=== PATIENT | female | born 1950 | race Caucasian/White ===

== ENCOUNTER 2019-09-13 10:30 | Outpatient (CLI) | payer MEDICARE, SELFPAY ==
[2019-09-13 11:19] LABS: Albumin Level 4.3 g/dL (3.5-5.2); Anion Gap 15.3 (5-19); Blood Urea Nitrogen 16 mg/dL (8-23); Calcium 9.9 mg/dL (8.5-10.5); Carbon Dioxide 28 mmol/L (22-29); Chloride 99 mmol/L (98-107); Glucose 104 mg/dL (74-106); Phosphorus 2.3 mg/dL (2.5-4.5); Potassium 5.3 mmol/L (3.5-5.1); Sodium 137 mmol/L (136-145)
[2019-09-13 11:23] LABS: Bilirubin Urine Neg (NEGATIVE); Blood Urine Neg (Negative); Glucose Urine UA Norm (Normal); Ketones Urine Negative (Negative); Leukocyte Esterase Urine Negative (Negative); Nitrate Urine Negative (Negative); Protein Urine Neg (Negative); Specific Gravity, Urine 1.005 (1.005-1.030); Urine Appearance Clear (CLEAR); Urine Color Straw (Yellow); Urobilinogen Urine Norm (Negative)
[2019-09-13 11:43] LABS: Add Urine Culture? No; Bacteria Urine TRACE; RBC Urine RARE /hpf (0-2); Squamous Epithelial Cell Urine 0-4 (0-5)
[2019-09-13 11:44] LABS: Creatinine Urine, Random 55 mg/dL (28-217)
[2019-09-13 11:53] LABS: Microalbum Creatinine Ratio Ur 18 mg/dL (0-20); Microalbumin Random Urine 1 ug/dL (0-20)
== END 2019-09-13 10:31 | disposition home or self-care (01) ==
LOC: LAB 10:41
PROVIDERS: Family Provider Registered Nurse; PCP Registered Nurse; Visit Provider Internal Medicine Nephrology
DX: N18.3 Chronic kidney disease, stage 3 (moderate) (principal)
CPT/HCPCS: 36415; 80069; 81001; 82044

== ENCOUNTER 2019-09-18 09:21 | Outpatient (CLI) | payer MEDICARE, SELFPAY ==
--- NOTE | 2019-09-18 09:36 | US_ITS ---
WS: [id number] ULTRASOUND RENAL TECHNIQUE: Ultrasound examination of both kidneys. CLINICAL INFORMATION: CHRONIC KIDNEY DZ STAGE 3 COMPARISON: None. FINDINGS: RIGHT: Right kidney is normal in size and appearance. Echogenicity: Normal. Cortical thickness: 1.2 cm; Normal. Hydronephrosis: None. Perinephric fluid: None. Right kidney measures: 10.0 cm x 4.5 cm x 4.0 cm. LEFT: Left upper pole renal cyst measuring 3.9 x 4.2 x 4.6 cm Left kidney is normal in size and appearance. Echogenicity: Normal. Cortical thickness: 1.2 cm; Normal. Hydronephrosis: None. Perinephric fluid: None. Left kidney measures: 10.0 cm x 3.9 cm x 5.4 cm. Normal visualized aorta. US/US renal BI* [id number] IMPRESSION: 1. No hydronephrosis in either kidney. 2. Left upper pole renal cyst measuring 3.9 x 4.2 x 4.6 cm. 3. Bladder is decompressed.
== END 2019-09-18 09:22 | disposition home or self-care (01) ==
LOC: RAD 09:30
PROVIDERS: Family Provider Registered Nurse; PCP Registered Nurse; Visit Provider Internal Medicine Nephrology
DX: N18.3 Chronic kidney disease, stage 3 (moderate) (principal); N28.1 Cyst of kidney, acquired
CPT/HCPCS: 76770

== ENCOUNTER 2020-03-04 10:52 | Outpatient (CLI) | payer MEDICARE, MEDICAID, SELFPAY ==
[2020-03-04 11:27] LABS: Basophils % 0.2 %; Eosinophils # 0.1 10^3/uL (0.0-0.8); Eosinophils % 1.5 %; Hematocrit 39.7 % (37.0-47.0); Hemoglobin 12.8 g/dL (11.5-15.3); Lymphocytes # 0.9 10^3/uL (0.8-4.8); Lymphocytes % 14.2 %; Mean Corpuscular HGB Conc 32.2 g/dL (30.0-36.0); Mean Corpuscular Hemoglobin 28.9 pg (28.0-34.0); Mean Corpuscular Volume 89.6 fL (81-99); Mean Platelet Volume 11.3 fL (7.4-10.4); Monocytes # 0.4 10^3/uL (0.2-0.9); Monocytes % 5.6 %; Neutrophils # 5.16 10^3/uL (1.8-7.7); Nucleated Red Blood Cells % 0 %; Platelet Count 153 10^3/cmm (130-400); Red Blood Count 4.43 10^6/uL (4.1-5.3); White Blood Count 6.6 10^3/uL (4.0-10.0)
[2020-03-04 11:54] LABS: Creatinine Urine, Random 124 mg/dL (28-217); Microalbum Creatinine Ratio Ur 16 mg/dL (0-20); Microalbumin Random Urine 2 ug/dL (0-20)
[2020-03-04 12:11] LABS: 25 Hydroxy Vitamin D 23 ng/mL (30-100); Albumin Level 4.6 g/dL (3.5-5.2); Anion Gap 12.9 (5-19); Blood Urea Nitrogen 22 mg/dL (8-23); Calcium 9.3 mg/dL (8.5-10.5); Carbon Dioxide 29 mmol/L (22-29); Chloride 101 mmol/L (98-107); Glomerular Filtration Rate 37.5 mL/min (90-130); Glucose 164 mg/dL (65-115); Phosphorus 3.1 mg/dL (2.5-4.5); Potassium 4.9 mmol/L (3.5-5.1); Sodium 138 mmol/L (136-145)
[2020-03-04 13:09] LABS: Calcium 9.5 mg/dL (8.5-10.5); Parathyroid Hormone 30.2 pg/mL (15-65)
== END 2020-03-04 10:53 | disposition home or self-care (01) ==
LOC: LAB 10:58
PROVIDERS: PCP Registered Nurse; Visit Provider Internal Medicine Nephrology
DX: N18.3 Chronic kidney disease, stage 3 (moderate) (principal)
CPT/HCPCS: 36415; 80069; 82044; 82306; 82310; 83970; 85025

== ENCOUNTER 2020-04-05 08:40 | Outpatient (CLI) | payer MEDICARE, MEDICAID, SELFPAY ==
[2020-04-05 09:44] LABS: Anion Gap 12.4 (5-19); Blood Urea Nitrogen 22 mg/dL (8-23); Calcium 8.6 mg/dL (8.5-10.5); Carbon Dioxide 30 mmol/L (22-29); Chloride 99 mmol/L (98-107); Glomerular Filtration Rate 34.5 mL/min (90-130); Glucose 117 mg/dL (65-115); Osmolality Calculated 280 mOsm/kg (285-295); Potassium 5.4 mmol/L (3.5-5.1); Sodium 136 mmol/L (136-145)
== END 2020-04-05 08:41 | disposition home or self-care (01) ==
LOC: LAB 08:46
PROVIDERS: PCP Registered Nurse; Visit Provider Registered Nurse
DX: N18.3 Chronic kidney disease, stage 3 (moderate) (principal)
CPT/HCPCS: 36415; 80048

== ENCOUNTER 2020-07-18 10:53 | Outpatient (CLI) | payer MEDICARE, MEDICAID, SELFPAY ==
--- NOTE | 2020-07-18 11:00 | MM_ITS ---
WS: [id number] Bilateral screening digital mammogram, 07/18/2020 Clinical Data: SCREENING Comparison: 06/05/2019, 03/10/2018, 12/29/2016, 12/25/2014. Findings: The breast parenchymal pattern shows fat replacement. No spiculated masses or clustered calcification s are seen. There are no secondary signs of carcinoma. MM/[place] [id number] Impression: 1. Negative bilateral mammogram unchanged. 2. Recommend annual screening mammograms. BIRADS: 1-Negative FOLLOW UP: 1 Year Follow-up The CAD card checker was used.
== END 2020-07-18 10:54 | disposition home or self-care (01) ==
LOC: RADSHAW 10:57
PROVIDERS: PCP Registered Nurse; Visit Provider Registered Nurse
DX: Z12.31 Encounter for screening mammogram for malignant neoplasm of breast (principal)
CPT/HCPCS: 77067

== ENCOUNTER 2020-09-04 08:28 | Outpatient (CLI) | payer MEDICARE, MEDICAID, SELFPAY ==
[2020-09-04 09:15] LABS: Basophils % 0.3 %; Eosinophils # 0.1 10^3/uL (0.0-0.8); Eosinophils % 1.9 %; Hematocrit 41.7 % (37.0-47.0); Hemoglobin 13.7 g/dL (11.5-15.3); Lymphocytes # 1.2 10^3/uL (0.8-4.8); Lymphocytes % 16.7 %; Mean Corpuscular HGB Conc 32.9 g/dL (30.0-36.0); Mean Corpuscular Hemoglobin 28.7 pg (28.0-34.0); Mean Corpuscular Volume 87.4 fL (81-99); Mean Platelet Volume 11.1 fL (7.4-10.4); Monocytes # 0.5 10^3/uL (0.2-0.9); Monocytes % 6.8 %; Neutrophils # 5.46 10^3/uL (1.8-7.7); Nucleated Red Blood Cells % 0 %; Platelet Count 170 10^3/cmm (130-400); Red Blood Count 4.77 10^6/uL (4.1-5.3); White Blood Count 7.4 10^3/uL (4.0-10.0)
[2020-09-04 09:44] LABS: Albumin Level 4.6 g/dL (3.5-5.2); Anion Gap 13.5 (5-19); Blood Urea Nitrogen 26 mg/dL (8-23); Calcium 9.8 mg/dL (8.5-10.5); Carbon Dioxide 30 mmol/L (22-29); Chloride 95 mmol/L (98-107); Glomerular Filtration Rate 32.1 mL/min (90-130); Glucose 123 mg/dL (65-115); Phosphorus 3.2 mg/dL (2.5-4.5); Potassium 4.5 mmol/L (3.5-5.1); Sodium 134 mmol/L (136-145)
[2020-09-04 09:51] LABS: Creatinine Urine, Random 64 mg/dL (28-217); Microalbum Creatinine Ratio Ur 16 mg/dL (0-20); Microalbumin Random Urine 1 ug/dL (0-20)
[2020-09-04 10:00] LABS: Calcium 9.9 mg/dL (8.5-10.5); Parathyroid Hormone 43.8 pg/mL (15-65)
== END 2020-09-04 08:29 | disposition home or self-care (01) ==
PROVIDERS: PCP Registered Nurse; Visit Provider Registered Nurse
DX: N18.30 Chronic kidney disease, stage 3 unspecified (principal)
CPT/HCPCS: 36415; 80069; 82044; 82310; 83970; 85025

== ENCOUNTER 2020-10-17 10:20 | Outpatient (CLI) | payer MEDICARE, MEDICAID, SELFPAY ==
[2020-10-17 11:03] LABS: Estmated Average Glucose 120; Hemoglobin A1C 5.8 % (4.0-6.0)
[2020-10-17 11:27] LABS: Anion Gap 10.6 (5-19); Blood Urea Nitrogen 21 mg/dL (8-23); Calcium 9.5 mg/dL (8.5-10.5); Carbon Dioxide 32 mmol/L (22-29); Chloride 98 mmol/L (98-107); Glomerular Filtration Rate 40.7 mL/min (90-130); Glucose 114 mg/dL (65-115); Osmolality Calculated 286 mOsm/kg (285-295); Potassium 4.6 mmol/L (3.5-5.1); Sodium 136 mmol/L (136-145)
== END 2020-10-17 10:21 | disposition home or self-care (01) ==
PROVIDERS: PCP Registered Nurse; Visit Provider Registered Nurse
DX: I10 Essential (primary) hypertension (principal); N18.32 Chronic kidney disease, stage 3b; E11.22 Type 2 diabetes mellitus with diabetic chronic kidney disease
CPT/HCPCS: 36415; 80048; 83036

== ENCOUNTER 2020-10-21 12:26 | Outpatient (RCR) | payer MEDICARE, MEDICAID, SELFPAY | END 2020-11-13 23:59 | disposition home or self-care (01) | LOC: SPT 12:26 | PROVIDERS: PCP Registered Nurse; Referring Provider Registered Nurse; Visit Provider Registered Nurse | DX: Z74.09 Other reduced mobility (principal); E11.51 Type 2 diabetes mellitus with diabetic peripheral angiopathy without gangrene | CPT/HCPCS: 97110; 97112; 97161; 97530 ==

== ENCOUNTER 2020-10-22 07:43 | Outpatient (CLI) | payer MEDICARE, MEDICAID, SELFPAY ==
--- NOTE | 2020-10-22 07:57 | USCV_ITS ---
Marian Hartman Age: 70 Gender: F : 1950 Exam Date: 10/22/2020 08:18 Ordering Phys: Kayla Mantilla CLOTH WINDING SUPERVISOR CLOTH WINDING SUPERVISOR Technologist: Madonna Melvin [place] [facility] [place]: DECREASED MOBILITY Risk Factors: Previous Vascular Surgery: RIGHT LEFT BP: 180.0 / BP: / 0 Waveform Velocity (cm/s) Velocity (cm/s) Waveform Triphasic 237.2 Iliac Prox 278.3 Biphasic Triphasic 259.4 Iliac Mid 312.5 Biphasic Triphasic 251.3 Iliac Distal 219.7 Biphasic Biphasic 168.9 FRUIT PRESS OPERATOR 205.1 Biphasic Biphasic 209.1 SFA Prox 194.3 Biphasic Biphasic 126.7 SFA Mid 176.3 Biphasic Biphasic SFA Dist Biphasic 119.6 138.5 Biphasic 156.9 POP 86.3 Biphasic Triphasic 82.3 3RD PRESSMAN 115.1 Biphasic Triphasic 104.0 DPA 291.5 Biphasic 1.1 MELANIE 1.1 FINDINGS PRESSURE NOT TAKEN LT BRACH -WOUND IN AREA RT DPA 190 RT 3RD PRESSMAN 70 LT 3RD PRESSMAN 190 DPA 138 Normal resting ABIs bilaterally, 1.1 on both sides Moderate diffuse plaques in the iliac and femoral arteries bilaterally Possible stent in the mid SFA appears to be patent on the right side CONCLUSIONS Moderate to heavy plaques in the iliac and femoral arteries bilaterally with elevated velocities may suggest hemodynamically significant stenosis Elevated velocity in the left dorsalis pedis artery, suggestive of hemodynamically significant stenosis Possible stented segment in the right mid SFA patient be patent Normal resting ABIs bilaterally Consider CTA, to better evaluate the peripheral arteries, if clinically indicated No similar previous studies are available for comparison. Dr Susan Jimenez MD [facility] (Electronically Signed) Final Date: 23 October 2020 08:17 S
== END 2020-10-22 07:44 | disposition home or self-care (01) ==
LOC: RAD 07:47
PROVIDERS: PCP Registered Nurse; Visit Provider Registered Nurse
DX: Z74.09 Other reduced mobility (principal); I70.8 Atherosclerosis of other arteries
CPT/HCPCS: 93925

== ENCOUNTER 2021-03-19 09:32 | Outpatient (CLI) | payer MEDICARE, MEDICAID, SELFPAY ==
[2021-03-19 10:47] LABS: Basophils % 0.4 %; Eosinophils # 0.2 10^3/uL (0.0-0.8); Eosinophils % 1.9 %; Hematocrit 45.3 % (37.0-47.0); Hemoglobin 14.8 g/dL (11.5-15.3); Lymphocytes # 1.1 10^3/uL (0.8-4.8); Lymphocytes % 12.9 %; Mean Corpuscular HGB Conc 32.7 g/dL (30.0-36.0); Mean Corpuscular Hemoglobin 28.2 pg (28.0-34.0); Mean Corpuscular Volume 86.5 fL (81-99); Mean Platelet Volume 11.4 fL (7.4-10.4); Monocytes # 0.4 10^3/uL (0.2-0.9); Monocytes % 5.2 %; Neutrophils # 6.71 10^3/uL (1.8-7.7); Neutrophils % 79.4 %; Nucleated Red Blood Cells % 0 %; Platelet Count 203 10^3/cmm (130-400); Red Blood Count 5.24 10^6/uL (4.1-5.3); Red Cell Distribution Width 12.5 % (12.1-15.1); White Blood Count 8.5 10^3/uL (4.0-10.0)
[2021-03-19 11:05] LABS: Calcium 9.2 mg/dL (8.5-10.5)
[2021-03-19 11:06] LABS: Albumin Level 4.5 g/dL (3.5-5.2); Anion Gap 15.3 (5-19); Blood Urea Nitrogen 15 mg/dL (8-23); Calcium 9.4 mg/dL (8.5-10.5); Carbon Dioxide 28 mmol/L (22-29); Chloride 100 mmol/L (98-107); Glomerular Filtration Rate 40.7 mL/min (90-130); Glucose 118 mg/dL (65-115); Phosphorus 2.8 mg/dL (2.5-4.5); Potassium 4.3 mmol/L (3.5-5.1); Sodium 139 mmol/L (136-145)
[2021-03-19 11:12] LABS: Parathyroid Hormone 67.2 pg/mL (15-65)
[2021-03-19 11:22] LABS: 25 Hydroxy Vitamin D 23 ng/mL (30-100); Creatinine Urine, Random 52 mg/dL (28-217); Microalbumin Random Urine 4 ug/dL (0-20)
[2021-03-19 11:36] LABS: Microalbum Creatinine Ratio Ur 77 mg/dL (0-20)
== END 2021-03-19 09:33 | disposition home or self-care (01) ==
PROVIDERS: PCP Registered Nurse; Visit Provider Internal Medicine Nephrology
DX: E87.79 Other fluid overload (principal)
CPT/HCPCS: 80069; 82044; 82306; 82310; 83970; 85025

== ENCOUNTER 2021-07-21 10:52 | Outpatient (CLI) | payer MEDICARE, MEDICAID, SELFPAY ==
--- NOTE | 2021-07-21 11:00 | MM_ITS ---
WS: [id number] Exam: [place] [id number] Date/Time of Exam: 07/21/2021 11:02 AM Reason For Exam: SCREENING VIEWS: MLO and CC views both breasts. Comparison made with prior exam of 06/05/2019 and 07/18/2020. Findings: There are 2 small nodular densities both about 1 cm identified in the mid right breast on the MLO vie w only. One lesion is almost directly posterior to the nipple at mid depth and the second lesion is p osterior in depth and somewhat more superior. No architectural distortion or suspicious calcification . There are additional stable appearing fibroglandular densities in both breasts. No new finding in t he left breast. Both breasts contain scattered fibroglandular densities. MM/[place] [id number] Impression: BI-RADS: 0-Incomplete: Need additional imaging evaluation FOLLOW-UP: Need Additional Imaging. Compression spot imaging of the right breas t in the MLO projection would be indicated for further workup. This mammogram was also analyzed by the Computer Aided Detection System R2 Imag e [employer]ag[employer] Mechanic.
== END 2021-07-21 10:53 | disposition home or self-care (01) ==
LOC: RADSHAW 10:54
PROVIDERS: PCP Registered Nurse; Visit Provider Registered Nurse
DX: Z12.31 Encounter for screening mammogram for malignant neoplasm of breast (principal)
CPT/HCPCS: 77067

== ENCOUNTER 2021-08-19 13:54 | Outpatient (CLI) | payer MEDICARE, MEDICAID, SELFPAY ==
--- NOTE | 2021-08-19 14:03 | MM_ITS ---
WS: [id number] ADDITIONAL VIEWS RIGHT BREAST HISTORY: RT BREAST DENSITIES COMPARISON: 07/21/2021 and 07/18/2020 and 06/05/2019 Compression views right MLO projection. True ML, MLO also submitted. The very vague asymmetries noted in the mid to posterior RIGHT breast on the MLO projection do to not persist on today's study. MM/[place] [id number] IMPRESSION: BI-RADS: 2-Benign FOLLOW-UP: 1 Year Follow-up Return to annual screening. Previously described asymmetries do not persist on additional views.
== END 2021-08-19 13:55 | disposition home or self-care (01) ==
PROVIDERS: PCP Registered Nurse; Visit Provider Registered Nurse
DX: R92.8 Other abnormal and inconclusive findings on diagnostic imaging of breast (principal)
CPT/HCPCS: 77065

== ENCOUNTER 2022-03-19 09:16 | Outpatient (CLI) | payer MEDICARE, MEDICAID, SELFPAY ==
[2022-03-19 10:08] LABS: Basophils % 0.2 %; Eosinophils # 0.1 10^3/uL (0.0-0.8); Eosinophils % 1.4 %; Hematocrit 43.1 % (37.0-47.0); Hemoglobin 14.2 g/dL (11.5-15.3); Lymphocytes # 1.1 10^3/uL (0.8-4.8); Lymphocytes % 11.1 %; Mean Corpuscular HGB Conc 32.9 g/dL (30.0-36.0); Mean Corpuscular Hemoglobin 28.2 pg (28.0-34.0); Mean Corpuscular Volume 85.5 fl (81-99); Mean Platelet Volume 10.4 fL (7.4-10.4); Monocytes # 0.5 10^3/uL (0.2-0.9); Monocytes % 5.7 %; Neutrophils # 7.78 10^3/uL (1.8-7.7); Neutrophils % 81.4 %; Nucleated Red Blood Cells % 0 %; Platelet Count 232 10^3/cmm (130-400); Red Blood Count 5.04 10^6/uL (4.1-5.3); Red Cell Distribution Width 11.9 % (12.1-15.1); White Blood Count 9.6 10^3/uL (4.0-10.0)
[2022-03-19 10:28] LABS: Calcium 8.8 mg/dL (8.5-10.5)
[2022-03-19 10:31] LABS: Creatinine Urine, Random 4 mg/dL (28-217); Microalbum Creatinine Ratio Ur 250 mg/dL (0-20); Microalbumin Random Urine 1 ug/dL (0-20)
[2022-03-19 10:36] LABS: Parathyroid Hormone 83.3 pg/mL (15-65)
[2022-03-19 10:48] LABS: Albumin Level 3.9 g/dL (3.5-5.2); Blood Urea Nitrogen 19 mg/dL (8-23); Calcium 8.8 mg/dL (8.5-10.5); Carbon Dioxide 30 mmol/L (22-29); Chloride 97 mmol/L (98-107); Glomerular Filtration Rate 40.6 mL/min (90-130); Glucose 117 mg/dL (65-115); Phosphorus 2.6 mg/dL (2.5-4.5); Sodium 137 mmol/L (136-145)
[2022-03-19 11:04] LABS: 25 Hydroxy Vitamin D 49 ng/mL (30-100)
== END 2022-03-19 09:17 | disposition home or self-care (01) ==
PROVIDERS: PCP Nurse Practitioner Family; Visit Provider Internal Medicine Nephrology
DX: N18.32 Chronic kidney disease, stage 3b (principal)
CPT/HCPCS: 36415; 80069; 82044; 82306; 82310; 83970; 85025

== ENCOUNTER 2022-04-23 09:27 | Outpatient (CLI) | payer MEDICARE, MEDICAID, SELFPAY ==
[2022-04-23 10:24] LABS: Blood Urea Nitrogen 26 mg/dL (8-23); Calcium 9.5 mg/dL (8.5-10.5); Carbon Dioxide 28 mmol/L (22-29); Chloride 94 mmol/L (98-107); Glomerular Filtration Rate 40.5 mL/min (90-130); Glucose 91 mg/dL (65-115); Osmolality Calculated 276 mOsm/kg (285-295); Sodium 131 mmol/L (136-145)
[2022-04-23 10:35] LABS: Anion Gap 13.7 (5-19); Potassium 4.7 mmol/L (3.5-5.1)
== END 2022-04-23 09:28 | disposition home or self-care (01) ==
PROVIDERS: PCP Nurse Practitioner Family; Visit Provider Internal Medicine Nephrology
DX: N18.32 Chronic kidney disease, stage 3b (principal)
CPT/HCPCS: 36415; 80048

== ENCOUNTER 2022-12-07 13:28 | Outpatient (CLI) | payer MEDICARE, MEDICAID, SELFPAY ==
--- NOTE | 2022-12-07 13:56 | MM_ITS ---
WS: [id number] BILATERAL 3D TOMOSYNTHESIS DIGITAL SCREENING MAMMOGRAPHY WITH CAD CLINICAL INFORMATION: SCREENING HISTORY: Screening mammogram. No current complaints. COMPARISON: July 21, 2021 TECHNIQUE: Bilateral CC and MLO views. FINDINGS: Scattered fibroglandular densities bilaterally. No suspicious focal mass, asymmetry, calcifications, or architectural distortion. No evidence of malignancy. Incidental lucent centered calcification LEFT breast. MM/[place] [id number] IMPRESSION: BI-RADS: 2-Benign FOLLOW UP: 1 Year Follow-up Recommend return to annual screening mammography.
== END 2022-12-07 13:29 | disposition home or self-care (01) ==
LOC: RAD 13:46
PROVIDERS: PCP Nurse Practitioner Family; Visit Provider Nurse Practitioner Family
DX: Z12.11 Encounter for screening for malignant neoplasm of colon (principal)
CPT/HCPCS: 77063; 77067

== ENCOUNTER → 2023-01-26 13:33 | Outpatient (BNVA) | payer MEDICARE, MEDICAID, SELFPAY | PROVIDERS: PCP Nurse Practitioner Family; Visit Provider Internal Medicine | DX: R07.9 Chest pain, unspecified (principal); F03.90 Unspecified dementia, unspecified severity, without behavioral disturbance, psychotic disturbance, mood disturbance, and anxiety; E11.22 Type 2 diabetes mellitus with diabetic chronic kidney disease; I12.9 Hypertensive chronic kidney disease with stage 1 through stage 4 chronic kidney disease, or unspecified chronic kidney disease; N18.9 Chronic kidney disease, unspecified; R06.09 Other forms of dyspnea | CPT/HCPCS: 93005; 93225; 99214 ==

== ENCOUNTER 2023-01-28 12:30 | Outpatient (CLI) | payer MEDICARE, MEDICAID, SELFPAY ==
--- NOTE | 2023-01-28 12:58 | CT_ITS ---
WS: [id number] CT ABDOMEN AND PELVIS NONCONTRAST HISTORY: HX OF COLITIS/BLACK TARRY STOOLS TECHNIQUE: Imaging performed through the abdomen and pelvis. Coronal and sagittal reformats are submi tted. All CT scans at [facility] use at least one of these dose optimization techniques: auto mated exposure control; mA and/or kV adjustment per patient size (includes targeted exams where dose is matched to clinical indication); or iterative reconstruction. DLP: 280.47 mGy.cm COMPARISON: None available. Lower thorax: Lung bases are clear. Visualized heart is normal. Small hiatal hernia. Liver: Normal size liver. No mass or bile duct dilatation. Gallbladder: Normal gallbladder. No pericholecystic fluid or cholelithiasis. No gallbladder wall thic kening. Pancreas: Normal size and attenuation. Normal pancreatic duct. No pancreatitis or mass. Spleen: Normal. Adrenal glands: Normal. No mass. Right kidney: Normal size kidney with no mass or hydronephrosis. Left kidney: No renal obstruction. Simple cyst superior pole measures 4.7 x 4.8 cm. No obstruction. Aorta: Mild atherosclerosis abdominal aorta with no aneurysm. No free fluid, intraperitoneal air or significant lymphadenopathy. GI tract: Normal noncontrast evaluation of the stomach and small bowel. Tortuous overlapping loops of colon. Numerous diverticula in the descending and sigmoid colon. No acute diverticulitis. Appendix n ot identified. Abdominal wall: Negative. No hernia. Pelvis: Probable hysterectomy. Uterus is not identified. Osseous structures: Increase in lumbar lordosis. CT/CT abdomen pelvis wo con [id number] IMPRESSION: 1. No acute abdominal or pelvic abnormalities are identified. 2. No wall thickening of the colon to suggest acute colitis. 3. Distal colon diverticulosis without acute diverticulitis. 4. LEFT renal cyst.
[2023-01-28 13:23] LABS: Blood Urea Nitrogen 30 mg/dL (8-23); Glomerular Filtration Rate 26.1 mL/min (90-130)
== END 2023-01-28 12:31 | disposition home or self-care (01) ==
PROVIDERS: PCP Nurse Practitioner Family; Visit Provider Nurse Practitioner Family
DX: R19.5 Other fecal abnormalities (principal); K92.1 Melena; N28.1 Cyst of kidney, acquired; K57.90 Diverticulosis of intestine, part unspecified, without perforation or abscess without bleeding; Z87.19 Personal history of other diseases of the digestive system
CPT/HCPCS: 74176; 82565; 84520

== ENCOUNTER 2023-02-12 13:40 | Outpatient (CLI) | payer MEDICARE, MEDICAID, SELFPAY ==
--- NOTE | 2023-02-12 14:00 | USCV_ITS ---
Marian Hartman Age: 72 Gender: F : 1950 Exam Date: 02/12/2023 14:49 Ordering Phys: Franklin Harry M.D ([email or web address]) Technologist: [place] [facility] [place]: sob BP: 120 / 80 HR: 76 Rhythm: Sinus Technical Quality: Adequate MEASUREMENTS (Male / Female) Normal Values 2D ECHO LVOT Diameter 2.0 cm LV Ejection Fraction MOD 2C 45.7 % LV Ejection Fraction 2C AL 44.7 % LA Diameter 3.2 cm Aorta at Sinotubular Diameter 2.7 cm IVC Diameter 1.5 cm M-MODE Aortic Annulus Diameter 3.0 cm LA Ao Ratio MM 1.1 MV E Point Septal Separation 0.6 cm DOPPLER AV Peak Velocity 177.0 cm/s LVOT Peak Velocity 120.0 cm/s AV Area Cont Eq vti 2.2 cm squared AV Area Cont Eq pk 2.2 cm squared MV Peak Velocity 99.0 cm/s MV Area PHT 2.6 cm squared Mitral E to A Ratio 0.8 MV E' Velocity 43.0 cm/s Mitral E to MV E' Ratio 6.9 Mitral E to LV E' Lateral Ratio 6.2 Mitral E to LV E' Septal Ratio 7.8 TR Peak Velocity 94.0 cm/s TR Peak Gradient 3.5 mmHg TV Peak E Velocity 85.0 cm/s Right Atrial Pressure 3.0 mmHg Pulmonary Artery Systolic Pressu 6.5 mmHg PV Peak Velocity 114.0 cm/s FINDINGS Left Ventricle Left ventricle is normal in size. LV systolic function is normal with EF 60-65%. No regional wall motion abnormalities are seen. Grade 1 diastolic dysfunction Right Ventricle Normal in size and function Right Atrium Normal in size Left Atrium Normal in size Mitral Valve Structurally normal mitral valve. Mild mitral regurgitation. Aortic Valve Aortic valve is thickened. Mild aortic regurgitation. Tricuspid Valve Trace tricuspid regurgitation. Insufficient TR jet to calculate RVSP Pulmonic Valve Not well visualized Pericardium Normal Aorta Normal in size IVC Appears to be normal CONCLUSIONS LV systolic function is normal with EF of 60-65% Grade 1 diastolic dysfunction Mild mitral regurgitation Mild aortic regurgitation Trace tricuspid regurgitation No comparison studies are available. Franklin Harry MD (Electronically Signed) Final Date: 16 February 2023 14:04 S
== END 2023-02-12 13:41 | disposition home or self-care (01) ==
LOC: RAD 13:42
PROVIDERS: PCP Nurse Practitioner Family; Visit Provider Internal Medicine
DX: I50.30 Unspecified diastolic (congestive) heart failure (principal); I34.0 Nonrheumatic mitral (valve) insufficiency; I07.1 Rheumatic tricuspid insufficiency
CPT/HCPCS: 93306

== ENCOUNTER → 2023-02-24 13:36 | Outpatient (BNVA) | payer MEDICARE, MEDICAID, SELFPAY | PROVIDERS: PCP Nurse Practitioner Family; Visit Provider Nurse Practitioner Family | DX: C44.612 Basal cell carcinoma of skin of right upper limb, including shoulder (principal); C44.712 Basal cell carcinoma of skin of right lower limb, including hip; L57.8 Other skin changes due to chronic exposure to nonionizing radiation; L57.0 Actinic keratosis; L81.4 Other melanin hyperpigmentation; D22.5 Melanocytic nevi of trunk; L85.3 Xerosis cutis; Z85.828 Personal history of other malignant neoplasm of skin | CPT/HCPCS: 11102; 11103; 17004; 99213 ==

== ENCOUNTER → 2023-03-22 08:20 | Outpatient (BNVA) | payer MEDICARE, MEDICAID, SELFPAY | PROVIDERS: PCP Nurse Practitioner Family; Visit Provider Dermatology | DX: L57.0 Actinic keratosis (principal); D04.61 Carcinoma in situ of skin of right upper limb, including shoulder; D04.71 Carcinoma in situ of skin of right lower limb, including hip; C44.612 Basal cell carcinoma of skin of right upper limb, including shoulder | CPT/HCPCS: 17314; 12034; 17313; 99213 ==

== ENCOUNTER → 2023-04-06 10:38 | Outpatient (BNVA) | payer MEDICARE, MEDICAID, SELFPAY | PROVIDERS: PCP Nurse Practitioner Family; Visit Provider Dermatology | DX: Z48.02 Encounter for removal of sutures (principal) | CPT/HCPCS: 99212 ==

== ENCOUNTER → 2023-04-20 12:43 | Outpatient (BNVA) | payer MEDICARE, MEDICAID, SELFPAY | PROVIDERS: PCP Nurse Practitioner Family; Visit Provider Internal Medicine | DX: I13.10 Hypertensive heart and chronic kidney disease without heart failure, with stage 1 through stage 4 chronic kidney disease, or unspecified chronic kidney disease (principal); E11.22 Type 2 diabetes mellitus with diabetic chronic kidney disease; N18.9 Chronic kidney disease, unspecified; Z96.41 Presence of insulin pump (external) (internal); R06.09 Other forms of dyspnea | CPT/HCPCS: 99214 ==

== ENCOUNTER 2023-05-04 20:00 | Outpatient (CLI) | payer MEDICARE, MEDICAID, SELFPAY | END 2023-05-04 20:01 | disposition home or self-care (01) | LOC: SLEEP 05-05 04:40 | PROVIDERS: PCP Nurse Practitioner Family; Visit Provider Internal Medicine | DX: G47.33 Obstructive sleep apnea (adult) (pediatric) (principal) | CPT/HCPCS: 95810 ==

== ENCOUNTER 2023-06-01 19:03 | Emergency (ER) | payer MEDICARE, MEDICAID, SELFPAY ==
[2023-06-01 19:12] VITALS: BP 168/85; PULSE 70; RESP 17; O2SAT 94; BMI 29.4
--- NOTE | 2023-06-01 19:16 | XRR_ITS ---
PROCEDURE INFORMATION: Exam: XR Lumbosacral Spine Exam date and time: 06/01/2023 7:36 PM Age: 73 years old Clinical indication: Injury or trauma; Fall; Blunt trauma (contusions or hematomas) TECHNIQUE: Imaging protocol: Radiologic exam of the lumbosacral spine. Views: 2 or 3 views. COMPARISON: CT abdomen pelvis wo con [id number] 01/28/2023 2:19 PM FINDINGS: Bones/joints: 10 degrees leftward lumbar curvature. The vertebral body stature is maintained. No fracture or subluxation. Degenerative endplate changes in the lower thoracic spine and at L1-L2. Soft tissues: Unremarkable. Vasculature: Arterial calcifications. XR/XR lumbar spine 2-3V* [id number] IMPRESSION: No acute findings.
--- NOTE | 2023-06-01 19:16 | XRR_ITS ---
PROCEDURE INFORMATION: Exam: XR Left Shoulder Exam date and time: 06/01/2023 7:40 PM Age: 73 years old Clinical indication: Injury or trauma; Fall; Blunt trauma (contusions or hematomas); Shoulder; Left TECHNIQUE: Imaging protocol: Radiologic exam of the left shoulder. Views: 2 or more views. COMPARISON: No relevant prior studies available. FINDINGS: Bones/joints: Normal. Soft tissues: Normal. XR/XR shoulder LT min 2V* [id number] IMPRESSION: No acute findings.
--- NOTE | 2023-06-01 22:17 | ED_ITS ---
HPI - Fall General: Chief Complaint: Fall Stated Complaint: fall- back pain and shoulder pain Time Seen by Provider: 06/01/23 21:38 Source: patient Mode of arrival: ambulatory Limitations: no limitations History of Present Illness: 73-year-old female states she had tripped out of her front door and fell onto the ground she states she had landed on her back and side states she has left shoulder pain and low back pain from the fall she rates the pain a 5 out of 10 she denies any hip pain she denies hitting her head denies any head neck pain. She is able to ambulate. Associated symptoms-after fall: Denies abdominal pain, chest pain, headache(s) or neck pain Review of Systems Const: Denies: fever(s) or chills Eyes: Denies: eye discomfort ENMT: Denies: throat pain or dental pain Card: Denies: chest pain Resp: Denies: dyspnea GI: Denies: abdominal pain, nausea, vomiting or diarrhea Musc: Reports: back pain and extremity pain; Denies: neck pain Skin/Breast: Denies: rash Neuro: Denies: headache(s) PFSH ED PFSH: Medical History Asthma CKD (chronic kidney disease) Diabetes mellitus History of nonmelanoma skin cancer HTN (hypertension) Hypercholesterolemia Peripheral arterial disease with history of revascularization Family History Mother Myocardial infarction Father Myocardial infarction Stroke Social History Smoking and tobacco/nicotine status: never used tobacco/nicotine Physical Exam Const: COMMON NORMALS: no acute distress, patient oriented x3 and healthy appearing HENMT: COMMON NORMALS: normocephalic and atraumatic HEAD & SCALP: normocephalic and atraumatic Eye: COMMON NORMALS: Equal, round and reactive pupils present and EOMs intact bilaterally PUPIL: Yes Equal, round and reactive pupils present Neck/C-Spine: COMMON NORMALS: full ROM and supple CERVICAL SPINE: No pain with cervical ROM and No Cervical spine tenderness Chest: COMMONS NORMALS: normal inspection of the chest and normal palpation of entire chest wall Resp: COMMON NORMALS: normal respiratory effort, No retractions, No use of accessory muscles and clear to auscultation bilaterally AUSCULTATION: clear to auscultation bilaterally Cardio: COMMON NORMALS: regular rate, regular rhythm and No murmurs present (Cardio) RATE: regular rate RHYTHM: regular rhythm GI: COMMON NORMALS: Normal to inspection, nondistended, normoactive bowel sounds present, Soft to palpation, non-tender and no masses PALPATION: Yes Soft to palpation Back/Pelvis: OTHER: Lower lumbar tenderness no midline tenderness Extremity: COMMON NORMALS: full ROM NARRATIVE EXTREMITY EXAM: Plan tenderness over left shoulder has full range of motion no obvious deformities Neuro: COMMON NORMALS: patient oriented x3, moves all extremities and no focal motor deficits Psych: COMMON NORMALS: mental status grossly normal, Normal thought process present and cooperative THOUGHT PROCESS: Normal thought process present Skin: COMMON NORMALS: no rashes or lesions noted and no wounds GENERAL SKIN EXAM: no rashes or lesions noted Course Vital Signs: Vital signs: Vital Signs Pulse Rate 70 06/01/23 19:12 Respiratory Rate 17 06/01/23 19:12 Blood Pressure 168/85 06/01/23 19:12 Pulse Oximetry 94 06/01/23 19:12 Oxygen Delivery Me thod Room Air 06/01/23 19:12 MDM - Fall Medical Decision Making patient presents with shoulder and back contusion from a fall x-ray showed no fracture she has no head or neck injury she is well-appearing here we will prescribe Naprosyn she is stable for discharge she is to follow-up with PCP and return if worsening. Medical Records I reviewed the patient's medical records. Lab Data Radiology Impressions Lumbar Spine X-Ray 06/01/23 19:16 IMPRESSION: No acute findings. Shoulder X-Ray 06/01/23 19:16 IMPRESSION: No acute findings. All radiology interpretation(s) finalized by discharge Discharge Plan Discharge Patient Disposition: Home Clinical Impression: Fall, Contusion of left shoulder, Contusion of lower back Condition: Stable Prescriptions: New Naprosyn 500 mg tablet 500 mg PO BID PRN (Reason: pain) Qty: 20 0RF No Action pravastatin 80 mg tablet 80 mg PO DAILY docusate sodium [Colace] 100 mg capsule 100 mg PO DAILY PRN torsemide 10 mg tablet 10 mg PO DAILY magnesium oxide 400 mg magnesium capsule 400 mg PO BID cholecalciferol (vitamin D3) 10 mcg (400 unit) capsule 10 mcg PO DAILY donepezil [Aricept] 5 mg tablet 5 mg PO DAILY ferrous sulfate 325 mg (65 mg iron) tablet 325 mg PO DAILY Discharge Orders: Discharge ED (Routine); Ordered 06/01/23 Ordered By: Suzy Tyson Referrals: Alber Wright FNP [Primary Care Provider] - 1-3 days Discharge Diet: Advance as tolerated Discharge Activity: Resume usual activity Patient Instructions: Contusion in Adults (ED), Back Pain (ED), Fall Prevention (ED) Coding Level of Care Code ED Engine Head Repairer for Vanna Bolivar
[2023-06-01] MEDS: HYDROcodone-acetaminophen 5-325 mg Tablet 1 TAB PO (22:32)
[2023-06-01 22:35] VITALS: BP 168/85; PULSE 70; RESP 17; O2SAT 94
== END 2023-06-01 22:36 | disposition home or self-care (01) ==
PROVIDERS: Emergency Provider Emergency Medicine; PCP Nurse Practitioner Family
DX: S30.0XXA Contusion of lower back and pelvis, initial encounter (principal); S40.012A Contusion of left shoulder, initial encounter; E11.22 Type 2 diabetes mellitus with diabetic chronic kidney disease; I12.9 Hypertensive chronic kidney disease with stage 1 through stage 4 chronic kidney disease, or unspecified chronic kidney disease; N18.9 Chronic kidney disease, unspecified; W18.09XA Striking against other object with subsequent fall, initial encounter
CPT/HCPCS: 72100; 73030; 99284

== ENCOUNTER 2023-06-21 14:20 | Outpatient (CLI) | payer MEDICARE, MEDICAID, SELFPAY ==
[2023-06-21 16:16] LABS: Basophils % 0.4 %; Eosinophils # 0.2 10^3/uL (0.0-0.8); Hematocrit 42.9 % (36-47); Lymphocytes # 1.2 10^3/uL (0.8-4.8); Lymphocytes % 14.6 %; Mean Corpuscular HGB Conc 32.4 g/dL (30-55); Mean Corpuscular Volume 89.4 fl (85-98); Mean Platelet Volume 11.3 fL (7.4-10.4); Monocytes # 0.6 10^3/uL (0.2-0.9); Monocytes % 7.6 %; Neutrophils # 6.12 10^3/uL (1.8-7.7); Neutrophils % 75.2 %; Nucleated Red Blood Cells % 0 %; Platelet Count 194 10^3/cmm (157-399); Red Cell Distribution Width 11.9 % (12.1-15.1); White Blood Count 8.14 10^3/uL (3.29-11.43)
[2023-06-21 16:50] LABS: 25 Hydroxy Vitamin D 48 ng/mL (30-100); Albumin Level 4.5 g/dL (3.5-5.2); Anion Gap 15.9 (5-19); Blood Urea Nitrogen 40 mg/dL (8-23); Carbon Dioxide 27 mmol/L (22-29); Chloride 98 mmol/L (98-107); Glucose 95 mg/dL (65-115); Phosphorus 3.5 mg/dL (2.5-4.5); Potassium 4.9 mmol/L (3.5-5.1); Sodium 136 mmol/L (136-145)
[2023-06-21 17:05] LABS: Creatinine Urine, Random 83 mg/dL (28-217); Microalbum Creatinine Ratio Ur 12 mg/dL (0-20); Microalbumin Random Urine 1 ug/dL (0-20)
== END 2023-06-21 14:21 | disposition home or self-care (01) ==
PROVIDERS: PCP Nurse Practitioner Family; Visit Provider Registered Nurse
DX: E55.9 Vitamin D deficiency, unspecified (principal); R80.9 Proteinuria, unspecified; N18.32 Chronic kidney disease, stage 3b
CPT/HCPCS: 36415; 80069; 82044; 82306; 85025

== ENCOUNTER → 2023-06-24 14:47 | Outpatient (BNVA) | payer MEDICARE, MEDICAID, SELFPAY | PROVIDERS: PCP Nurse Practitioner Family; Visit Provider Nurse Practitioner Family | DX: L57.8 Other skin changes due to chronic exposure to nonionizing radiation (principal); L57.0 Actinic keratosis; L81.4 Other melanin hyperpigmentation; D22.5 Melanocytic nevi of trunk; L85.3 Xerosis cutis | CPT/HCPCS: 17004; 99214 ==

== ENCOUNTER 2023-07-06 10:30 | Outpatient (CLI) | payer MEDICARE, MEDICAID, SELFPAY ==
--- NOTE | 2023-07-06 11:03 | USR_ITS ---
PROCEDURE INFORMATION: Exam: US Retroperitoneal; Complete; Kidneys and Bladder Exam date and time: 07/06/2023 11:39 AM Age: 73 years old Clinical indication: Condition or disease; Kidney or ureter condition; Chronic kidney disease or failure; Ckd stage 3 (moderate); Additional info: Stage 3b chronic kidney dz TECHNIQUE: Imaging protocol: Real-time ultrasound of the retroperitoneum with image documentation. Complete exam focused on the kidneys and bladder. COMPARISON: CT abdomen pelvis con [id number] 01/28/2023 2:19 PM FINDINGS: Right kidney: The right kidney measures 10.5 x 4.0 x 3.3 cm. Cortical thickness is about 9 mm. No mass, definite calculus, or hydronephrosis. Left kidney: The left kidney measures 8.5 x 4.6 x 3.8 cm. Cortical thickness is about 11 mm. A 4.6 cm simple cyst is seen in the upper pole. No solid mass, definite calculus , or hydronephrosis. Urinary bladder: The bladder was empty. US/US renal BI* [id number] IMPRESSION: 1. Large simple cyst in the upper pole left kidney. Otherwise unremarkable kidneys. 2. The bladder was empty and could not be evaluated.
[2023-07-06 11:04] LABS: Basophils % 0.3 %; Eosinophils # 0.1 10^3/uL (0.0-0.8); Eosinophils % 1.7 %; Hematocrit 41.4 % (36-47); Lymphocytes # 0.9 10^3/uL (0.8-4.8); Mean Corpuscular HGB Conc 33.6 g/dL (30-55); Mean Corpuscular Hemoglobin 29.4 pg (27-33); Mean Corpuscular Volume 87.5 fl (85-98); Mean Platelet Volume 10.9 fL (7.4-10.4); Monocytes # 0.4 10^3/uL (0.2-0.9); Monocytes % 6.9 %; Neutrophils # 4.59 10^3/uL (1.8-7.7); Neutrophils % 75.9 %; Nucleated Red Blood Cells % 0 %; Platelet Count 174 10^3/cmm (157-399); Red Blood Count 4.73 10^6/uL (3.85-5.65); Red Cell Distribution Width 11.8 % (12.1-15.1); White Blood Count 6.05 10^3/uL (3.29-11.43)
[2023-07-06 11:24] LABS: Albumin Level 4.4 g/dL (3.5-5.2); Blood Urea Nitrogen 28 mg/dL (8-23); Calcium 9.3 mg/dL (8.5-10.5); Carbon Dioxide 23 mmol/L (22-29); Chloride 100 mmol/L (98-107); Glucose 129 mg/dL (65-115); Phosphorus 2.9 mg/dL (2.5-4.5); Sodium 136 mmol/L (136-145)
[2023-07-06 11:25] LABS: Calcium 9.4 mg/dL (8.5-10.5)
[2023-07-06 11:31] LABS: Parathyroid Hormone 59.4 pg/mL (15-65)
[2023-07-06 11:32] LABS: Urine Creatinine 111 mg/dL (28-217); Urine Protein Random 6 mg/dL
[2023-07-06 11:33] LABS: UPRO/UCREAT Ratio 0.05 mg/mg CR
[2023-07-06 11:40] LABS: 25 Hydroxy Vitamin D 40 ng/mL (30-100)
[2023-07-06 11:44] LABS: Anion Gap 17.4 (5-19); Potassium 4.4 mmol/L (3.5-5.1)
== END 2023-07-06 10:31 | disposition home or self-care (01) ==
PROVIDERS: PCP Nurse Practitioner Family; Visit Provider Registered Nurse
DX: E55.9 Vitamin D deficiency, unspecified (principal); N18.32 Chronic kidney disease, stage 3b
CPT/HCPCS: 36415; 76770; 80069; 82306; 82310; 82570; 83970; 84156; 85025

== ENCOUNTER 2023-10-15 14:48 | Emergency (ER) | payer OTHER, MEDICAID, SELFPAY ==
[2023-10-15 14:49] VITALS: BP 115/55; PULSE 51; RESP 18; TEMP 37; O2SAT 91; BMI 27.4
--- NOTE | 2023-10-15 15:08 | CT_ITS ---
WS: [id number] CT HEAD NONCONTRAST HISTORY: near syncope and collapse TECHNIQUE: Contiguous axial imaging performed through the brain in 2.5 mm imaging. Bone and soft tiss ue windows. Sagittal and coronal reformats reviewed. All CT scans at [facility] use at least one of these dose optimization techniques: automated exposure control; mA and/or kV adjustment per pa tient size (includes targeted exams where dose is matched to clinical indication); or iterative recon struction. DLP: 1144.08 mGy.cm COMPARISON: None available. No acute intracranial hemorrhage, midline shift or mass effect. Moderate symmetric atrophy and mild small vessel ischemic disease. No large territory infarct. No hem orrhage. Ventricles: Normal size with no hydrocephalus. Paranasal sinuses: As visualized are clear. Mastoid air cells: Well pneumatized. Calvarium and scalp: Skull is intact with no soft tissue edema or swelling. IMPRESSION: 1. No acute intracranial hemorrhage or edema. 2. Moderate atrophy and mild small vessel ischemic disease.
--- NOTE | 2023-10-15 15:08 | XR_ITS ---
WS: [id number] Exam: XR chest 1V portable [id number] Date/Time of Exam: 10/15/2023 3:13 PM Reason For Exam: near syncope No priors. The lungs are fully expanded and clear. Cardiomediastinal silhouette is unremarkable for technique. N o pleural effusions. Bony structures are intact. IMPRESSION: 1. No acute cardiopulmonary finding.
--- NOTE | 2023-10-15 15:12 | ED_ITS ---
HPI - Syncope 2 General: Chief Complaint: Syncope Stated Complaint: LOC, syncope, bradycardia Time Seen by Provider: 10/15/23 14:52 History of Present Illness: 73-year-old female presents to the emerg ency department chief complaint of having an episode of syncope while she was on the commode apparently the patient has had recent history of this in the past patient has a known history of Parkinson's disease. Patient does not recall any recent infections or illnesses she reports during the episode she did not hit her head is unclear that she had a loss of consciousness patient reports she felt dizzy during the episode with no palpitations or shortness of breath patient does not recall any known history of underlying heart issues however she does appear to be a very poor historian patient presents to the ER via by EMS for further assessment and management. Associated symptoms: Deny abdominal pain, chest pain, fever(s), headache(s) or nausea Review of Systems 2 General: Reports: 10 or more systems reviewed and unremarkable except in HPI and below Const: Denies: fever(s), chills, fatigue or malaise Eyes: Denies: change in vision or blurry vision Card: Denies: chest pain or palpitations Resp: Denies: dyspnea or productive cough GI: Denies: abdominal pain, nausea or vomiting : Denies: flank pain Musc: Denies: extremity pain or extremity swelling Skin/Breast: Denies: rash or pruritus Neuro: Reports: dizziness and other (Syncope); Denies: headache(s) Psych: Denies: anxiety or depression Bobby/Lymph: Denies: easy bleeding All/Imm: Denies: urticaria, throat swelling or facial swelling PFSH ED 2 PFSH: Medical History Diabetes mellitus CKD (chronic kidney disease) Hypercholesterolemia Asthma History of nonmelanoma skin cancer Peripheral arterial disease with history of revascularization HTN (hypertension) Family History Mother Myocardial infarction Father Myocardial infarction Stroke Social History Smoking and tobacco/nicotine status: never used tobacco/nicotine Physical Exam 2 Narrative: EXAM NARRATIVE: Masked facies apparent patient is slow to answer commands however patient has no obvious focal neurodeficits on exam Const: COMMON NORMALS: no acute distress, patient oriented x3 and healthy appearing HENMT: COMMON NORMALS: normocephalic and atraumatic HEAD & SCALP: n ormocephalic and atraumatic Eye: COMMON NORMALS: Equal, round and reactive pupils present and EOMs intact bilaterally PUPIL: Yes Equal, round and reactive pupils present Neck/C-Spine: COMMON NORMALS: full ROM, supple and no JVD Lymph: LYMPHATIC: no lymphadenopathy noted Chest: COMMONS NORMALS: normal inspection of the chest and normal palpation of entire chest wall Resp: COMMON NORMALS: normal respiratory effort, No retractions and clear to auscultation bilaterally EFFORT & INSPECTION: Yes able to speak in complete sentences and Yes symmetric chest movement AUSCULTATION: clear to auscultation bilaterally Cardio: COMMON NORMALS: no JVD, regular rate and regular rhythm RATE: r egular rate RHYTHM: regular rhythm GI: COMMON NORMALS: Normal to inspection, nondistended, normoactive bowel sounds present, Soft to palpation and non-tender INSPECTION: Yes normal to inspection PALPATION: Yes Soft to palpation : COMMON NORMALS: Yes no CVA tenderness BLADDER/KIDNEY EXAM: Yes no CVA tenderness Back/Pelvis: COMMON NORMALS: no CVA tenderness Extremity: COMMON NORMALS: normal to inspection and full ROM Neuro: COMMON NORMALS: patient oriented x3, CN's II-XII intact bilaterally, moves all extremities and no focal motor deficits Psych: COMMON NORMALS: mental status grossly normal, Normal thought process present, cooperative and normal affect THOUGHT PROCESS: Normal thought process present Skin: COMMON NORMALS: no rashes or lesions noted GENERAL SKIN EXAM: no rashes or lesions noted Course 2 Vital Signs: Vital signs: Vital Signs Temperature 98.6 F 10/15/23 14:49 Pulse Rate 50 L 10/15/23 18:30 Respiratory Rate 20 H 10/15/23 18:30 Blood Pressure 149/49 10/15/23 18:00 Pulse Oximetry 99 10/15/23 18:30 Oxygen Delivery Me thod Room Air 10/15/23 14:49 MDM - Syncope Medical Decision Making Due to patient's symptoms and condition basic neuro and cardio workup will be obtained Concerns of possible vasovagal episode due to her having this during a bowel movement underlying concerns also dehydration due to her Parkinson's disorder is prominent will continue to rule out additional electrolyte normality or UTI or other infection. Will continue to follow. Lab Data 10/15/23 15:30 10/15/23 16:30 Laboratory Results WBC 8.10 10^3/uL (3.29-11.43) 10/15/23 15: RBC 4.87 10^6/uL (3.85-5.65) 10/15/23 15:30 Hgb 14.40 g/dL (11.27-16.99) 10/15/23 15:30 Hct 43.7 % (36-47) 10/15/23 15:30 MCV 89.7 fl (85-98) 10/15/23 15:30 MCH 29.6 pg (27-33) 10/15/23 15: MCHC 33.0 g/dL (30-55) 10/15/23 15:30 RDW 12.0 % (12.1-15.1) L 10/15/23 15:30 Plt Count 137 10^3/cmm (157-399) L 10/15/23 15: MPV 12.7 fL (7.4-10.4) H 10/15/23 15:30 Neut % (Auto) 80.1 % 10/15/23 15:30 Lymph % (Auto) 12.0 % 10/15/23 15:30 [place] % (Auto) 6.8 % 10/15/23 15:30 Eos % (Auto) 0.7 % 10/15/23 15:30 Baso % (Auto) 0.2 % 10/15/23 15:30 Neut # (Auto) 6.48 10^3/uL (1.8-7.7) 10/15/23 15: Lymph # (Auto) 1.0 10^3/uL (0.8-4.8) 10/15/23 15:30 [place] # (Auto) 0.6 10^3/uL (0.2-0.9) 10/15/23 15:30 Eos # (Auto) 0.1 10^3/uL (0.0-0.8) 10/15/23 15:30 Baso # (Auto) 0.0 10^3/uL (0.0-0.1) 10/15/23 15:30 Nucleated RBC % (auto) 0 % 10/15/23 15:30 Nucleated RBCs # 0.0 /100WBC 10/15/23 15:30 Sodium 137 mmol/L (136-145) 10/15/23 16:30 Potassium 4.9 mmol/L (3.5-5.1) 10/15/23 16:30 Chloride 98 mmol/L (98-107) 10/15/23 16:30 Carbon Dioxide 29 mmol/L (22-29) 10/15/23 16:30 Anion Gap 14.9 (5-19) 10/15/23 16:30 BUN 30 mg/dL (8-23) H 10/15/23 16:30 Creatinine 2.1 mg/dL (0.5-0.9) H 10/15/23 16:30 GFR Calculation Not Reportable 10/15/23 16:30 Glucose 150 mg/dL (65-115) H 10/15/23 16:30 POC Glucose 155 mg/dL (70-110) H 10/15/23 18:07 Calculated Osmolality 293 mOsm/kg (285-295) 10/15/23 16:30 Calcium 9.9 mg/dL (8.5-10.5) 10/15/23 16:30 Total Bilirubin 0.3 mg/dL (0.15-1.2) 10/15/23 16:30 AST 9 U/L (0-32) 10/15/23 16:30 ALT < 5 U/L (0-33) 10/15/23 16:30 Alkaline Phosphatase 74 U/L (35-105) 10/15/23 16:30 Troponin T Baseline 21 ng/L (0-10) H 10/15/23 16:30 C-Reactive Protein 3.0 mg/L (0.0-4.9) 10/15/23 16:30 NT-Pro-B Natriuret Pep 565 pg/mL (0-125) H 10/15/23 16:30 Total Protein 6.8 g/dL (6.6-8.7) 10/15/23 16:30 Albumin 4.0 g/dL (3.5-5.2) 10/15/23 16:30 Globulin 2.8 g/dL (1.3-4.6) 10/15/23 16:30 Urine Color Yellow (Yellow) 10/15/23 18:03 Urine Appearance Clear (CLEAR) 10/15/23 18:03 Urine pH 7 (5-7) 10/15/23 18:03 Ur Specific [place] 1.005 (1.005-1.030) 10/15/23 18:03 Urine Protein Neg (Negative) 10/15/23 18:03 Urine Glucose (UA) Norm (Normal) 10/15/23 18:03 Urine Ketones 1+ (Negative) H 10/15/23 18:03 Urine Blood Neg (Negative) 10/15/23 18:03 Urine Nitrate Negative (Negative) 10/15/23 18:03 Urine Bilirubin Neg (Negative) 10/15/23 18:03 Urine Urobilinogen Norm mg/dL (Negative) 10/15/23 18:03 Ur Leukocyte Esterase Negative (Negative) 10/15/23 18:03 XR interpretation done by ED provider, pending radiology final review Discharge Plan Discharge Patient Disposition: Home Clinical Impression: Vasovagal syncope, Dehydration, Parkinson's disease Condition: Stable Prescriptions: No Action pravastatin 80 mg tablet 80 mg PO DAILY docusate sodium [Colace] 100 mg capsule 100 mg PO DAILY PRN (Reason: Constipation) torsemide 10 mg tablet 10 mg PO DAILY magnesium oxide 400 mg magnesium capsule 400 mg PO EVERY OTHER DAY cholecalciferol (vitamin D3) 10 mcg (400 unit) capsule 10 mcg PO DAILY donepezil [Aricept] 5 mg tablet 5 mg PO DAILY naproxen [Naprosyn] 500 mg tablet 500 mg PO BID PRN (Reason: pain) Qty: 20 0RF carbidopa-levodopa 50-200 mg tablet extended release 1 tab PO TID Calcium 600 600 mg calcium (1,500 mg) Tablet 600 mg PO BID lisinopril 5 mg tablet 5 mg PO DAILY Discharge Orders: Discharge ED (Routine); Ordered 10/15/23 Ordered By: Nick Robert Referrals: Alber Wright FNP [Primary Care Provider] - 4-7 days Discharge Diet: Advance as tolerated Discharge Activity: Increase activity as tolerated Patient Instructions: Dehydration (ED), Parkinson Disease (ED), Syncope (ED) Coding Level of Care Code ED Commercial Retoucher for Vanna Bolivar
--- NOTE | 2023-10-15 15:17 | ECG_ITS ---
[facility] Test Date: 2023-10-15 Pat Name: Marian Hartman Department: Room: Gender: Female Hospitalist: : 1950 Requested By: Nick Robert Order Number: [id number] José Miguel MD: Susan Jimenez M.D. Measurements Intervals [place] Rate: 51 P: 40 OK: 170 QRS: 48 QRSD: 101 T: 40 QT: 459 QTc: 425 Interpretive Statements SINUS BRADYCARDIA POSSIBLE RIGHT VENTRICULAR CONDUCTION DELAY [RSR (QR) IN V1/V2] Compared to ECG 01/26/2023 13:41:15 Sinus arrhythmia no longer present T-wave abnormality no longer present Electronically Signed On 10-15-2023 18:00:04 [employer] PIT CREW PERSON by Susan Jimenez M.D. [id number]
[2023-10-15 15:27] VITALS: BP 128/55; PULSE 56; RESP 14; O2SAT 96
[2023-10-15] MEDS: sodium chloride 0.9% 500 ML IV (15:30)
[2023-10-15 15:41] LABS: Basophils % 0.2 %; Eosinophils # 0.1 10^3/uL (0.0-0.8); Eosinophils % 0.7 %; Hematocrit 43.7 % (36-47); Mean Corpuscular Hemoglobin 29.6 pg (27-33); Mean Corpuscular Volume 89.7 fl (85-98); Mean Platelet Volume 12.7 fL (7.4-10.4); Monocytes # 0.6 10^3/uL (0.2-0.9); Monocytes % 6.8 %; Neutrophils # 6.48 10^3/uL (1.8-7.7); Neutrophils % 80.1 %; Nucleated Red Blood Cells % 0 %; Platelet Count 137 10^3/cmm (157-399); Red Blood Count 4.87 10^6/uL (3.85-5.65)
[2023-10-15 17:11] LABS: Alanine Aminotransferase < 5 U/L (0-33); Alkaline Phosphatase 74 U/L (35-105); Anion Gap 14.9 (5-19); Aspartate Amino Transferase 9 U/L (0-32); Blood Urea Nitrogen 30 mg/dL (8-23); Calcium 9.9 mg/dL (8.5-10.5); Carbon Dioxide 29 mmol/L (22-29); Chloride 98 mmol/L (98-107); Globulin 2.8 g/dL (1.3-4.6); Glucose 150 mg/dL (65-115); NT Pro B Type Natriuretic Pept 565 pg/mL (0-125); Osmolality Calculated 293 mOsm/kg (285-295); Potassium 4.9 mmol/L (3.5-5.1); Sodium 137 mmol/L (136-145); Total Bilirubin 0.3 mg/dL (0.15-1.2); Total Protein 6.8 g/dL (6.6-8.7)
[2023-10-15 17:23] LABS: Troponin(5th) Baseline 21 ng/L (0-10)
[2023-10-15 18:00] VITALS: BP 149/49; PULSE 58; RESP 16; O2SAT 100
[2023-10-15 18:10] LABS: Glucose Point of Care 155 mg/dL (70-110)
[2023-10-15 18:12] LABS: Add Urine Microscopic? NO; Charge for UA Resulting for Rev
[2023-10-15 18:22] LABS: Bilirubin Urine Neg (Negative); Blood Urine Neg (Negative); Glucose Urine UA Norm (Normal); Ketones Urine 1+ (Negative); Leukocyte Esterase Urine Negative (Negative); Nitrate Urine Negative (Negative); Protein Urine Neg (Negative); Specific Gravity, Urine 1.005 (1.005-1.030); Urine Appearance Clear (CLEAR); Urine Color Yellow (Yellow); Urobilinogen Urine Norm (Negative); pH Urine 7 (5-7)
[2023-10-15 18:30] VITALS: PULSE 50; RESP 20; O2SAT 99
[2023-10-15 19:00] VITALS: BP 126/39; PULSE 55; RESP 16; O2SAT 97
[2023-10-15 19:14] LABS: Troponin 5 2HR 19.65 ng/L (0-10)
[2023-10-15 19:16] LABS: Troponin 5 2HR Delta -1.35 ABS# (0-10)
== END 2023-10-15 19:02 | disposition home or self-care (01) ==
PROVIDERS: Emergency Provider Emergency Medicine; PCP Nurse Practitioner Family
DX: R55 Syncope and collapse (principal); E86.0 Dehydration; G20.A1 Parkinson's disease without dyskinesia, without mention of fluctuations; E11.22 Type 2 diabetes mellitus with diabetic chronic kidney disease; I12.9 Hypertensive chronic kidney disease with stage 1 through stage 4 chronic kidney disease, or unspecified chronic kidney disease; N18.9 Chronic kidney disease, unspecified
CPT/HCPCS: 36415; 36416; 70450; 71045; 80053; 81003; 82962; 83880; 84484; 85025; 86140; 93005; 99285; J7040

== ENCOUNTER 2023-10-25 14:23 | Emergency (ER) | payer OTHER, MEDICAID, SELFPAY ==
[2023-10-25] VITALS (11 sets, daily range): BP systolic 90–169; BP diastolic 48–66; PULSE 43–57; RESP 14–25; O2SAT 93–100; BMI 26.3
--- NOTE | 2023-10-25 14:32 | XRR_ITS ---
PROCEDURE INFORMATION: Exam: XR Chest Exam date and time: 10/25/2023 3:00 PM Age: 73 years old Clinical indication: Other: Bradycardia TECHNIQUE: Imaging protocol: Radiologic exam of the chest. Views: 1 view. COMPARISON: CR XR chest 1V portable [id number] 10/15/2023 3:24 PM FINDINGS: Lungs: No significant pulmonary pathology. Pleural spaces: No pleural effusion or pneumothorax. Heart/Mediastinum: Cardiomediastinal contours within normal limits. Bones/joints: Thoracolumbar spine curvature with degenerative change. 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 XR/XR chest 1V portable [id number] IMPRESSION: No acute pathology or significant interval change.
--- NOTE | 2023-10-25 14:32 | W.ED.GENADLT ---
HPI - General Adult General: Chief complaint: Altered Mental Status Stated complaint: ams Time Seen by Provider: 10/25/23 14:28 History of Present Illness: Patient arrived via EMS from dermatology. Patient was having some skin cancer taken care of but was not in and out of consciousness. Upon EMSs arrival her heart rate was in the 40s, blood pressure around 80/45 but she is alert and oriented. Patient said she knew she was doing this. Patient has a known slow heart rate, she wore a Holter monitor about a year ago but nothing was found. Patient has no complaints at this time. Review of Systems General: Reports: 10 or more systems reviewed and unremarkable except in HPI and below PFSH ED PFSH: Medical History Diabetes mellitus CKD (chronic kidney disease) Hypercholesterolemia Asthma History of nonmelanoma skin cancer Peripheral arterial disease with history of revascularization HTN (hypertension) Family History Mother Myocardial infarction Father Myocardial infarction Stroke Social History Smoking and tobacco/nicotine status: never used tobacco/nicotine Physical Exam Const: COMMON NORMALS: no acute distress, average body habitus, patient oriented x3, no limitations, healthy appearing and alert HENMT: COMMON NORMALS: normocephalic, atraumatic, hearing grossly normal bilaterally, external ears normal, Normal external nose present, moist oral mucous membranes and oropharynx normal HEAD & SCALP: normocephalic and atraumatic NOSE: Normal external nose present EXTERNAL EAR: Yes external ears normal Neck/C-Spine: COMMON NORMALS: no JVD Chest: COMMONS NORMALS: normal inspection of the chest and normal palpation of entire chest wall Resp: COMMON NORMALS: normal respiratory effort, No retractions, No use of accessory muscles and clear to auscultation bilaterally AUSCULTATION: clear to auscultation bilaterally Cardio: COMMON NORMALS: no JVD, regular rhythm, S1 normal heart sound present, S2 normal heart sound present, No gallops present (Cardio), No clicks present (Cardio), No murmurs present (Cardio) and No rub (Cardio); negative for regular rate (Bradycardic) RATE: abnormal rate (Bradycardic) RHYTHM: regular rhythm HEART SOUNDS: S1 normal heart sound present and S2 normal heart sound present GI: COMMON NORMALS: Normal to inspection, nondistended, normoactive bowel sounds present, Soft to palpation, non-tender, No hepatosplenomegaly present and no masses PALPATION: Yes Soft to palpation and Yes No hepatosplenomegaly present Extremity: NARRATIVE EXTREMITY EXAM: Negative bilateral lower extremity edema Neuro: COMMON NORMALS: patient oriented x3 SENSORIUM/ORIENTATION: Yes alert Course Vital Signs: Vital signs: Vital Signs Pulse Rate 53 L 10/25/23 19:48 Respiratory Rate 17 10/25/23 19:48 Blood Pressure 137/66 10/25/23 19:48 Pulse Oximetry 98 10/25/23 19:48 MDM - General Adult Medical Decision Making Patient was evaluated here in ER and was found to be bradycardic and hypotensive at times and then at other times she was found to be normal cardiac and normotensive.We did find that her urine did show signs of a mild infection. Her BUN/creatinine was 33 and 2.0 we will give her Cipro here and Cipro prescription to go home and patient to follow-up with her PCP within 7 days. Differential Diagnosis Syncope, bradycardia, hypotension Medical Records I reviewed the patient's medical records. Lab Data I reviewed the patient's lab results. 10/25/23 14:45 10/25/23 14:45 Radiology Impressions Chest X-Ray 10/25/23 14:32 IMPRESSION: No acute pathology or significant interval change. Laboratory Results WBC 8.03 10^3/uL (3.29-11.43) 10/25/23 14:45 RBC 4.93 10^6/uL (3.85-5.65) 10/25/23 14:45 Hgb 14.40 g/dL (11.27-16.99) 10/25/23 14:45 Hct 44.6 % (36-47) 10/25/23 14:45 MCV 90.5 fl (85-98) 10/25/23 14:45 MCH 29.2 pg (27-33) 10/25/23 14:45 MCHC 32.3 g/dL (30-55) 10/25/23 14:45 RDW 11.6 % (12.1-15.1) L 10/25/23 14:45 Plt Count 164 10^3/cmm (157-399) 10/25/23 14:45 MPV 11.7 fL (7.4-10.4) H 10/25/23 14:45 Neut % (Auto) 79.9 % 10/25/23 14:45 Lymph % (Auto) 12.5 % 10/25/23 14:45 [place] % (Auto) 6.5 % 10/25/23 14:45 Eos % (Auto) 0.6 % 10/25/23 14:45 Baso % (Auto) 0.4 % 10/25/23 14:45 Neut # (Auto) 6.42 10^3/uL (1.8-7.7) 10/25/23 14:45 Lymph # (Auto) 1.0 10^3/uL (0.8-4.8) 10/25/23 14:45 [place] # (Auto) 0.5 10^3/uL (0.2-0.9) 10/25/23 14:45 Eos # (Auto) 0.1 10^3/uL (0.0-0.8) 10/25/23 14:45 Baso # (Auto) 0.0 10^3/uL (0.0-0.1) 10/25/23 14:45 Nucleated RBC % (auto) 0 % 10/25/23 14:45 Nucleated RBCs # 0.0 /100WBC 10/25/23 14:45 Sodium 134 mmol/L (136-145) L 10/25/23 14:45 Potassium 4.6 mmol/L (3.5-5.1) 10/25/23 14:45 Chloride 93 mmol/L (98-107) L 10/25/23 14:45 Carbon Dioxide 29 mmol/L (22-29) 10/25/23 14:45 Anion Gap 16.6 (5-19) 10/25/23 14:45 BUN 33 mg/dL (8-23) H 10/25/23 14:45 Creatinine 2.0 mg/dL (0.5-0.9) H 10/25/23 14:45 GFR Calculation Not Reportable 10/25/23 14:45 Glucose 122 mg/dL (65-115) H 10/25/23 14:45 Calculated Osmolality 287 mOsm/kg (285-295) 10/25/23 14:45 Calcium 10.9 mg/dL (8.5-10.5) H 10/25/23 14:45 Magnesium 1.8 mg/dL (1.7-2.3) 10/25/23 14:45 Total Bilirubin 0.5 mg/dL (0.15-1.2) 10/25/23 14:45 AST 10 U/L (0-32) 10/25/23 14:45 ALT < 5 U/L (0-33) 10/25/23 14:45 Alkaline Phosphatase 79 U/L (35-105) 10/25/23 14:45 NT-Pro-B Natriuret Pep 671 pg/mL (0-125) H 10/25/23 14:45 Total Protein 7.4 g/dL (6.6-8.7) 10/25/23 14:45 Albumin 4.3 g/dL (3.5-5.2) 10/25/23 14:45 Globulin 3.1 g/dL (1.3-4.6) 10/25/23 14:45 TSH 4.15 uIU/mL (0.27-4.20) 10/25/23 14:45 Urine Color Straw (Yellow) 10/25/23 16:31 Urine Appearance Clear (CLEAR) 10/25/23 16:31 Urine pH 8 (5-7) H 10/25/23 16:31 Ur Specific [place] 1.005 (1.005-1.030) 10/25/23 16:31 Urine Protein Neg (Negative) 10/25/23 16:31 Urine Glucose (UA) Norm (Normal) 10/25/23 16:31 Urine Ketones Negative (Negative) 10/25/23 16:31 Urine Blood Neg (Negative) 10/25/23 16:31 Urine Nitrate Negative (Negative) 10/25/23 16:31 Urine Bilirubin Neg (Negative) 10/25/23 16:31 Prot Sulfosalicylic Acd Negative (Negative) 10/25/23 16:31 Urine Urobilinogen Norm mg/dL (Negative) 10/25/23 16:31 Ur Leukocyte Esterase Trace (Negative) H 10/25/23 16:31 Urine RBC None /hpf (0-2) 10/25/23 16:31 Urine WBC 0-4 /hpf (0-5) H 10/25/23 16:31 Ur Squamous Epith Cells 0-4 /hpf (0-5) H 10/25/23 16:31 Amorphous Sediment Not Reportable 10/25/23 16:31 Urine Bacteria Trace /hpf (NONE) 10/25/23 16:31 All radiology interpretation(s) finalized by discharge EKG Data EKG 1: I personally reviewed and interpreted this EKG as follows: EKG interpretation date: 10/25/23 EKG interpretation time: 14:39 Interpretation: Ventricular rate 45 bpm, W[place] interval 176, QRS duration 105, QTc of 437, sinus bradycardia Computer generated interpretation: Chest X-Ray 10/25/23 14:32 IMPRESSION: No acute pathology or significant interval change. Discharge Plan Discharge Patient Disposition: Home Clinical Impression: Bradycardia Urinary tract infection Qualifiers: Urinary tract infection type: acute cystitis Hematuria presence: without hematuria Qualified Code(s): N30.00 - Acute cystitis without hematuria Condition: Stable Prescriptions: New ciprofloxacin HCl 500 mg tablet 500 mg PO Q12H Qty: 20 0RF No Action pravastatin 80 mg tablet 80 mg PO DAILY docusate sodium [Colace] 100 mg capsule 100 mg PO DAILY PRN (Reason: Constipation) torsemide 10 mg tablet 10 mg PO DAILY magnesium oxide 400 mg magnesium capsule 400 mg PO EVERY OTHER DAY cholecalciferol (vitamin D3) 10 mcg (400 unit) capsule 10 mcg PO DAILY donepezil [Aricept] 5 mg tablet 5 mg PO DAILY naproxen [Naprosyn] 500 mg tablet 500 mg PO BID PRN (Reason: pain) Qty: 20 0RF carbidopa-levodopa 50-200 mg tablet extended release 1 tab PO TID calcium carbonate [Calcium 600] 600 mg calcium (1,500 mg) Tablet 600 mg PO BID lisinopril 5 mg tablet 5 mg PO DAILY Discharge Orders: Discharge ED (Routine); Ordered 10/25/23 Ordered By: Gurpreet Bullard Referrals: Alber Wright FNP [Primary Care Provider] - 1 week Patient Instructions: Bradycardia (ED), Urinary Tract Infection in Older Adults (ED) Activity Restrictions/Additional Instructions: Urine showed you have signs of urinary tract infection. Please take all your antibiotics as directed. Please follow-up with your family practitioner in the next 7 to 10 days for further evaluation and treatment. Coding Level of Care Code ED Composing Room Machinist Apprentice for Darwing Katt
--- NOTE | 2023-10-25 14:39 | ECG_ITS ---
[facility] Test Date: 2023-10-25 Pat Name: Marian Hartman Department: Room: Gender: Female Certified Master Safe Technician: : 1950 Requested By: Gurpreet Bullard Order Number: [id number] José Miguel MD: Susan Jimenez M.D. Measurements Intervals [place] Rate: 45 P: 28 OR: 176 QRS: 41 QRSD: 105 T: 34 QT: 484 QTc: 419 Interpretive Statements SINUS BRADYCARDIA POSSIBLE RIGHT VENTRICULAR CONDUCTION DELAY [RSR (QR) IN V1/V2] Compared to ECG 10/15/2023 15:17:51 No significant changes Electronically Signed On 10-26-2023 22:58:50 CDT by Susan Jimenez M.D. [id number]
[2023-10-25 14:50] LABS: Basophils % 0.4 %; Eosinophils # 0.1 10^3/uL (0.0-0.8); Eosinophils % 0.6 %; Hematocrit 44.6 % (36-47); Lymphocytes % 12.5 %; Mean Corpuscular HGB Conc 32.3 g/dL (30-55); Mean Corpuscular Hemoglobin 29.2 pg (27-33); Mean Corpuscular Volume 90.5 fl (85-98); Mean Platelet Volume 11.7 fL (7.4-10.4); Monocytes # 0.5 10^3/uL (0.2-0.9); Monocytes % 6.5 %; Neutrophils # 6.42 10^3/uL (1.8-7.7); Neutrophils % 79.9 %; Nucleated Red Blood Cells % 0 %; Platelet Count 164 10^3/cmm (157-399); Red Blood Count 4.93 10^6/uL (3.85-5.65); Red Cell Distribution Width 11.6 % (12.1-15.1); White Blood Count 8.03 10^3/uL (3.29-11.43)
[2023-10-25 15:26] LABS: Alanine Aminotransferase < 5 U/L (0-33); Albumin Level 4.3 g/dL (3.5-5.2); Alkaline Phosphatase 79 U/L (35-105); Anion Gap 16.6 (5-19); Aspartate Amino Transferase 10 U/L (0-32); Blood Urea Nitrogen 33 mg/dL (8-23); Calcium 10.9 mg/dL (8.5-10.5); Carbon Dioxide 29 mmol/L (22-29); Chloride 93 mmol/L (98-107); Creatinine Clr Calc Pharmacy 22.8844; Globulin 3.1 g/dL (1.3-4.6); Glucose 122 mg/dL (65-115); Magnesium 1.8 mg/dL (1.7-2.3); NT Pro B Type Natriuretic Pept 671 pg/mL (0-125); Osmolality Calculated 287 mOsm/kg (285-295); Potassium 4.6 mmol/L (3.5-5.1); Sodium 134 mmol/L (136-145); Thyroid Stimulating Hormone 4.15 uIU/mL (0.27-4.20); Total Bilirubin 0.5 mg/dL (0.15-1.2); Total Protein 7.4 g/dL (6.6-8.7)
[2023-10-25] MEDS: sodium chloride 0.9% 1,000 ML 999 ML IV (15:34)
[2023-10-25 17:34] LABS: Urine Appearance Clear (CLEAR); Urine Color Straw (Yellow); pH Urine 8 (5-7)
[2023-10-25 17:35] LABS: Add Urine Culture? No; Add Urine Microscopic? YES; Bacteria Urine TRACE /hpf; Bilirubin Urine Neg (Negative); Blood Urine Neg (Negative); Glucose Urine UA Norm (Normal); Ketones Urine Negative (Negative); Leukocyte Esterase Urine Trace (Negative); Nitrate Urine Negative (Negative); Protein Urine Neg (Negative); Specific Gravity, Urine 1.005 (1.005-1.030); Squamous Epithelial Cell Urine 0-4 /hpf (0-5); Sulfosalicylic Acid Urine Negative (Negative); Urobilinogen Urine Norm (Negative); WBC Urine 0-4 /hpf (0-5)
[2023-10-25] MEDS: ciprofloxacin 500 mg Tablet PO (19:26)
== END 2023-10-25 19:40 | disposition home or self-care (01) ==
PROVIDERS: Emergency Provider Emergency Medicine; PCP Nurse Practitioner Family
DX: L57.0 Actinic keratosis (principal); R55 Syncope and collapse; L57.8 Other skin changes due to chronic exposure to nonionizing radiation; L81.4 Other melanin hyperpigmentation; D22.5 Melanocytic nevi of trunk; L85.3 Xerosis cutis; I87.2 Venous insufficiency (chronic) (peripheral); Z85.828 Personal history of other malignant neoplasm of skin; R00.1 Bradycardia, unspecified; N30.00 Acute cystitis without hematuria; E11.22 Type 2 diabetes mellitus with diabetic chronic kidney disease; I12.9 Hypertensive chronic kidney disease with stage 1 through stage 4 chronic kidney disease, or unspecified chronic kidney disease; N18.9 Chronic kidney disease, unspecified
CPT/HCPCS: 17000; 36415; 71045; 80053; 81001; 83735; 83880; 84443; 85025; 93005; 96360; 96361; 99213; 99285; J7030

== ENCOUNTER 2023-11-08 13:58 | Emergency (ER) | payer OTHER, MEDICAID, SELFPAY ==
[2023-11-08 14:04] VITALS: BP 103/66; PULSE 82; TEMP 36.3; O2SAT 95; BMI 27.4
--- NOTE | 2023-11-08 14:14 | XR_ITS ---
WS: [id number] Exam: XR chest 1V portable [id number] Date/Time of Exam: 11/08/2023 2:17 PM Reason For Exam: weakness Comparison 10/25/2023. The lungs are fully expanded and clear. Unremarkable cardiomediastinal silhouette. No pleural effusio ns. Mild thoracolumbar scoliosis. 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 A battery pack i s visualized over the LEFT chest. IMPRESSION: 1. No acute cardiopulmonary finding.
--- NOTE | 2023-11-08 14:14 | CT_ITS ---
WS: [id number] Exam: CT head wo con* [id number] Date/Time of Exam: 11/08/2023 2:43 PM Reason For Exam: weakness DLP: All CT scans at [facility] use at least one of these dose optimization techniques: automated e xposure control; mA and/or kV adjustment per patient size (includes targeted exams where dose is matc hed to clinical indication); or iterative reconstruction. Comparison 10/15/2023. No sign of space-occupying mass or acute intracranial bleed. The ventricles and basal cisterns are no rmal in size. No extra-axial fluid collections. Diffuse atrophy and volume loss. The skull is intact. Unremarkable soft tissues. IMPRESSION: 1. No acute intracranial finding. Diffuse atrophy and volume loss.
--- NOTE | 2023-11-08 14:15 | ECG_ITS ---
[facility] Test Date: 2023-11-08 Pat Name: Marian Hartman Department: Room: Gender: Female Development Lead: : 1950 Requested By: Suzy Tyson Order Number: [id number] José Miguel MD: Franklin Harry M.D. Measurements Intervals [place] Rate: 70 P: 49 [place]: 162 QRS: 49 QRSD: 103 T: 49 QT: 384 QTc: 415 Interpretive Statements SINUS RHYTHM POSSIBLE RIGHT VENTRICULAR CONDUCTION DELAY [RSR (QR) IN V1/V2] Compared to ECG 10/25/2023 14:39:09 Sinus bradycardia no longer present Electronically Signed On 11-08-2023 21:50:23 CDT by Franklin Harry M.D. [id number]
[2023-11-08 14:47] LABS: Basophils % 0.3 %; Eosinophils # 0.1 10^3/uL (0.0-0.8); Eosinophils % 1.2 %; Hematocrit 45.6 % (36-47); Lymphocytes # 0.8 10^3/uL (0.8-4.8); Lymphocytes % 10.6 %; Mean Corpuscular HGB Conc 32.9 g/dL (30-55); Mean Corpuscular Hemoglobin 28.9 pg (27-33); Mean Corpuscular Volume 87.9 fl (85-98); Mean Platelet Volume 11.7 fL (7.4-10.4); Monocytes # 0.5 10^3/uL (0.2-0.9); Monocytes % 6.1 %; Neutrophils # 6.34 10^3/uL (1.8-7.7); Neutrophils % 81.5 %; Nucleated Red Blood Cells % 0 %; Platelet Count 153 10^3/cmm (157-399); Red Blood Count 5.19 10^6/uL (3.85-5.65); Red Cell Distribution Width 11.9 % (12.1-15.1); White Blood Count 7.76 10^3/uL (3.29-11.43)
--- NOTE | 2023-11-08 14:56 | ED_ITS ---
HPI - Weakness 2 General: Chief complaint: Weakness Stated complaint: sent from dr wright possible stroke Time Seen by Provider: 11/08/23 14:13 Source: patient Mode of arrival: ambulatory Limitations: no limitations History of Present Illness: 73-year-old female that is here with austin guerra states that she has had some weakness confusion states that yesterday she had a period where she did seem confused was having some weakness she had called her PCP and told her to come here to rule out stroke. Patient is now awake and alert she answers all my questions appropriately she does have a history of dementia she has no complaints here no slurred speech no focal deficits. She denies any pain anywhere Associated symptoms: Denies chest pain, chills, dysuria, fever(s), headache(s), nausea or vomiting Review of Systems 2 Const: Denies: fever(s), chills, body aches or change in appetite ENMT: Denies: throat pain or dental pain Card: Denies: chest pain Resp: Denies: dyspnea GI: Denies: abdominal pain, nausea, vomiting or diarrhea : Denies: dysuria Musc: Denies: neck pain or back pain Skin/Breast: Denies: rash Neuro: Reports: Slurred speech present; Denies: headache(s) PFSH ED 2 PFSH: Medical History Diabetes mellitus CKD (chronic kidney disease) Hypercholesterolemia Asthma History of nonmelanoma skin cancer Peripheral arterial disease with history of revascularization HTN (hypertension) Family History Mother Myocardial infarction Father Myocardial infarction Stroke Social History Smoking and tobacco/nicotine status: never used tobacco/nicotine Physical Exam 2 Const: COMMON NORMALS: no acute distress, patient oriented x3 and healthy appearing HENMT: COMMON NORMALS: normocephalic and atraumatic HEAD & SCALP: n ormocephalic and atraumatic Neck/C-Spine: COMMON NORMALS: full ROM and supple Chest: COMMONS NORMALS: normal inspection of the chest Resp: COMMON NORMALS: normal respiratory effort Cardio: COMMON NORMALS: regular rate, regular rhythm and No murmurs present (Cardio) RATE: regular rate RHYTHM: regular rhythm Extremity: COMMON NORMALS: normal to inspection and full ROM Neuro: COMMON NORMALS: patient oriented x3, moves all extremities and no focal motor deficits Psych: COMMON NORMALS: mental status grossly normal, Normal thought process present and cooperative THOUGHT PROCESS: Normal thought process present Skin: COMMON NORMALS: no rashes or lesions noted and no wounds GENERAL SKIN EXAM: no rashes or lesions noted Course 2 Vital Signs: Vital signs: Vital Signs Temperature 97.3 F L 11/08/23 14:04 Pulse Rate 61 11/08/23 17:00 Respiratory Rate 15 11/08/23 17:00 Blood Pressure 151/56 11/08/23 17:00 Pulse Oximetry 97 11/08/23 17:00 Oxygen Delivery Me thod Room Air 11/08/23 17:00 MDM - Weakness Medical Decision Making Patient presents here with some weakness she had some confusion yesterday she is at her baseline currently [facility] here was [address] blood work here is all normal she is stable for discharge to follow-up with PCP and return if worsening. Medical Records I reviewed the patient's medical records. Lab Data I reviewed the patient's lab results. 11/08/23 14:32 11/08/23 14:32 Laboratory Results WBC 7.76 10^3/uL (3.29-11.43) 11/08/23 14:32 RBC 5.19 10^6/uL (3.85-5.65) 11/08/23 14:32 Hgb 15.00 g/dL (11.27-16.99) 11/08/23 14:32 Hct 45.6 % (36-47) 11/08/23 14:32 MCV 87.9 fl (85-98) 11/08/23 14:32 MCH 28.9 pg (27-33) 11/08/23 14:32 MCHC 32.9 g/dL (30-55) 11/08/23 14:32 RDW 11.9 % (12.1-15.1) L 11/08/23 14:32 Plt Count 153 10^3/cmm (157-399) L 11/08/23 14:32 MPV 11.7 fL (7.4-10.4) H 11/08/23 14:32 Neut % (Auto) 81.5 % 11/08/23 14:32 Lymph % (Auto) 10.6 % 11/08/23 14:32 Saunders % (Auto) 6.1 % 11/08/23 14:32 Eos % (Auto) 1.2 % 11/08/23 14:32 Baso % (Auto) 0.3 % 11/08/23 14:32 Neut # (Auto) 6.34 10^3/uL (1.8-7.7) 11/08/23 14:32 Lymph # (Auto) 0.8 10^3/uL (0.8-4.8) 11/08/23 14:32 Saunders # (Auto) 0.5 10^3/uL (0.2-0.9) 11/08/23 14:32 Eos # (Auto) 0.1 10^3/uL (0.0-0.8) 11/08/23 14:32 Baso # (Auto) 0.0 10^3/uL (0.0-0.1) 11/08/23 14:32 Nucleated RBC % (auto) 0 % 11/08/23 14:32 Nucleated RBCs # 0.0 /100WBC 11/08/23 14:32 PT 12.20 SECONDS (12.1-14.9) 11/08/23 14:32 INR 0.88 (0.8-1.2) 11/08/23 14:32 Sodium 139 mmol/L (136-145) 11/08/23 14:32 Potassium 4.3 mmol/L (3.5-5.1) 11/08/23 14:32 Chloride 98 mmol/L (98-107) 11/08/23 14:32 Carbon Dioxide 29 mmol/L (22-29) 11/08/23 14:32 Anion Gap 16.3 (5-19) 11/08/23 14:32 BUN 41 mg/dL (8-23) H 11/08/23 14:32 Creatinine 2.4 mg/dL (0.5-0.9) H 11/08/23 14:32 GFR Calculation Not Reportable 11/08/23 14:32 Glucose 115 mg/dL (65-115) 11/08/23 14:32 Calculated Osmolality 299 mOsm/kg (285-295) H 11/08/23 14:32 Calcium 10.2 mg/dL (8.5-10.5) 11/08/23 14:32 Magnesium 1.9 mg/dL (1.7-2.3) 11/08/23 14:32 Total Bilirubin 0.5 mg/dL (0.15-1.2) 11/08/23 14:32 AST 11 U/L (0-32) 11/08/23 14:32 ALT < 5 U/L (0-33) 11/08/23 14:32 Alkaline Phosphatase 76 U/L (35-105) 11/08/23 14:32 Total Protein 7.5 g/dL (6.6-8.7) 11/08/23 14:32 Albumin 4.6 g/dL (3.5-5.2) 11/08/23 14:32 Globulin 2.9 g/dL (1.3-4.6) 11/08/23 14: TSH 2.35 uIU/mL (0.27-4.20) 11/08/23 14:32 Urine Color Yellow (Yellow) 11/08/23 16:10 Urine Appearance Clear (CLEAR) 11/08/23 16:10 Urine pH 7 (5-7) 11/08/23 16:10 Ur Specific [place] 1.005 (1.005-1.030) 11/08/23 16:10 Urine Protein Neg (Negative) 11/08/23 16:10 Urine Glucose (UA) Norm (Normal) 11/08/23 16:10 Urine Ketones Negative (Negative) 11/08/23 16:10 Urine Blood Neg (Negative) 11/08/23 16:10 Urine Nitrate Negative (Negative) 11/08/23 16:10 Urine Bilirubin Neg (Negative) 11/08/23 16:10 Urine Urobilinogen Norm mg/dL (Negative) 11/08/23 16:10 Ur Leukocyte Esterase 1+ (Negative) H 11/08/23 16:10 Urine RBC None /hpf (0-2) 11/08/23 16:10 Urine WBC 5-10 /hpf (0-5) H 11/08/23 16:10 Ur Squamous Epith Cells 5-10 /hpf (0-5) H 11/08/23 16:10 Amorphous Sediment Not Reportable 11/08/23 16:10 Urine Bacteria Trace /hpf (NONE) 11/08/23 16:10 Hyaline Casts 0-4 /lpf H 11/08/23 16:10 All radiology interpretation(s) finalized by discharge EKG Data EKG 1: I personally reviewed and interpreted this EKG as follows: EKG interpretation date: 11/08/23 EKG interpretation time: 14:47 Interpretation: nsr hr [address] or t wave abonrmalities qrs 103 qtc 404 Discharge Plan Discharge Patient Disposition: Home Clinical Impression: Weakness Condition: Stable Prescriptions: No Action pravastatin 80 mg tablet 80 mg PO BEDTIME docusate sodium [Colace] 100 mg capsule 100 mg PO DAILY PRN (Reason: Constipation) magnesium oxide 400 mg magnesium capsule 400 mg PO EVERY OTHER DAY donepezil [Aricept] 5 mg tablet 5 mg PO BEDTIME naproxen [Naprosyn] 500 mg tablet 500 mg PO BID PRN (Reason: pain) Qty: 20 0RF carbidopa-levodopa 50-200 mg tablet extended release 1 tab PO TID lisinopril 5 mg tablet 5 mg PO DAILY ciprofloxacin HCl 500 mg tablet 500 mg PO Q12H Qty: 20 0RF Rx Instructions: for 10 days (rx filled 10/26/23) Calcium + D 600 mg-5 mcg (200 unit) Tablet 1 tab PO BID torsemide 5 mg tablet 10 mg PO QAM ClearLax 17 gram Powder In Packet 17 g PO DAILY PRN (Reason: Constipation) Discharge Orders: Discharge ED (Routine); Ordered 11/08/23 Ordered By: Suzy Tyson Referrals: Alber Wright FNP [Primary Care Provider] - 1-3 days Discharge Diet: Advance as tolerated Discharge Activity: Resume usual activity Patient Instructions: Weakness (ED) Coding Level of Care Code ED Carpet Cleaner for Chg Fwd NIH stroke score NIHSS Level Of Consciousness - 1a: 0 Level Of Consciousness Questions - 1b: Both Correct Level Of Consciousness Commands - 1c: Both Correct Best Gaze - 2: Normal Visual Lebron - 3: No Visual Loss Facial Palsy - 4: Normal Motor Arm Right - 5: No Drift Motor Arm Left - 5: No Drift Motor Leg Right - 6: No Drift Motor Leg Left - 6: No Drift Limb Ataxia - 7: Absent Sensory - 8: Normal Best Language - 9: No Aphasia Dysarthia - 10: Normal Extinction And Inattention - 11: 0 Score Total Score: 0
[2023-11-08 14:58] LABS: INR 0.88 (0.8-1.2)
--- NOTE | 2023-11-08 15:06 | PC.NURSE ---
Pt on bedside nuclear monitoring technician
[2023-11-08 15:18] LABS: Alanine Aminotransferase < 5 U/L (0-33); Albumin Level 4.6 g/dL (3.5-5.2); Alkaline Phosphatase 76 U/L (35-105); Anion Gap 16.3 (5-19); Aspartate Amino Transferase 11 U/L (0-32); Blood Urea Nitrogen 41 mg/dL (8-23); Calcium 10.2 mg/dL (8.5-10.5); Carbon Dioxide 29 mmol/L (22-29); Chloride 98 mmol/L (98-107); Creatinine Clr Calc Pharmacy 19.4399; Globulin 2.9 g/dL (1.3-4.6); Glucose 115 mg/dL (65-115); Magnesium 1.9 mg/dL (1.7-2.3); Osmolality Calculated 299 mOsm/kg (285-295); Potassium 4.3 mmol/L (3.5-5.1); Sodium 139 mmol/L (136-145); Thyroid Stimulating Hormone 2.35 uIU/mL (0.27-4.20); Total Bilirubin 0.5 mg/dL (0.15-1.2); Total Protein 7.5 g/dL (6.6-8.7)
--- NOTE | 2023-11-08 15:18 | PC.PHAR ---
pts family states the pt has [facility] [phone]-medications entered are from what ext med history shows has been filled recently and what the pts family states the pt takes and the med list from [facility] and what the pts nurse joaquín from [facility] states she sets up for the pt
[2023-11-08 16:09] VITALS: BP 122/60; PULSE 74; RESP 16; O2SAT 96
[2023-11-08] MEDS: sodium chloride 0.9% 1,000 ML 999 ML IV (16:19)
[2023-11-08 16:28] LABS: Add Urine Microscopic? YES; Bilirubin Urine Neg (Negative); Blood Urine Neg (Negative); Glucose Urine UA Norm (Normal); Ketones Urine Negative (Negative); Leukocyte Esterase Urine 1+ (Negative); Nitrate Urine Negative (Negative); Protein Urine Neg (Negative); Specific Gravity, Urine 1.005 (1.005-1.030); Urine Appearance Clear (CLEAR); Urine Color Yellow (Yellow); Urobilinogen Urine Norm (Negative); pH Urine 7 (5-7)
[2023-11-08 16:29] LABS: Add Urine Culture? No; Bacteria Urine TRACE /hpf; Hyaline Casts Urine 0-4 /lpf
[2023-11-08 17:00] VITALS: BP 151/56; PULSE 61; RESP 15; O2SAT 97
== END 2023-11-08 17:29 | disposition home or self-care (01) ==
PROVIDERS: Emergency Provider Emergency Medicine; PCP Nurse Practitioner Family
DX: R53.1 Weakness (principal); E11.22 Type 2 diabetes mellitus with diabetic chronic kidney disease; I12.9 Hypertensive chronic kidney disease with stage 1 through stage 4 chronic kidney disease, or unspecified chronic kidney disease; N18.9 Chronic kidney disease, unspecified
CPT/HCPCS: 36415; 70450; 71045; 80053; 81001; 83735; 84443; 85025; 85610; 93005; 96360; 99285; J7030

== ENCOUNTER 2023-11-10 10:39 | Outpatient (CLI) | payer OTHER, MEDICAID, SELFPAY ==
[2023-11-10 11:18] LABS: Basophils % 0.4 %; Eosinophils # 0.1 10^3/uL (0.0-0.8); Eosinophils % 1.8 %; Hematocrit 44.5 % (36-47); Lymphocytes # 0.9 10^3/uL (0.8-4.8); Lymphocytes % 11.9 %; Mean Corpuscular Hemoglobin 28.9 pg (27-33); Mean Corpuscular Volume 87.4 fl (85-98); Mean Platelet Volume 12.5 fL (7.4-10.4); Monocytes # 0.5 10^3/uL (0.2-0.9); Monocytes % 6.7 %; Neutrophils # 5.63 10^3/uL (1.8-7.7); Neutrophils % 79.1 %; Nucleated Red Blood Cells % 0 %; Platelet Count 144 10^3/cmm (157-399); Red Blood Count 5.09 10^6/uL (3.85-5.65); Red Cell Distribution Width 11.9 % (12.1-15.1); White Blood Count 7.13 10^3/uL (3.29-11.43)
[2023-11-10 11:33] LABS: Albumin Level 4.3 g/dL (3.5-5.2); Anion Gap 15.8 (5-19); Blood Urea Nitrogen 33 mg/dL (8-23); Calcium 10.3 mg/dL (8.5-10.5); Carbon Dioxide 27 mmol/L (22-29); Chloride 98 mmol/L (98-107); Glucose 88 mg/dL (65-115); Phosphorus 3.7 mg/dL (2.5-4.5); Potassium 4.8 mmol/L (3.5-5.1); Sodium 136 mmol/L (136-145)
[2023-11-10 12:02] LABS: Calcium 10.3 mg/dL (8.5-10.5)
[2023-11-10 12:10] LABS: Parathyroid Hormone 12.5 pg/mL (15-65)
[2023-11-10 12:10] LABS: Creatinine Urine, Random 50 mg/dL (28-217); Microalbum Creatinine Ratio Ur 20 mg/dL (0-20); Microalbumin Random Urine 1 ug/dL (0-20)
[2023-11-10 12:36] LABS: 25 Hydroxy Vitamin D 48 ng/mL (30-100)
== END 2023-11-10 10:40 | disposition home or self-care (01) ==
LOC: LAB 10:41
PROVIDERS: PCP Nurse Practitioner Family; Visit Provider Registered Nurse
DX: N18.4 Chronic kidney disease, stage 4 (severe) (principal); Z79.899 Other long term (current) drug therapy; I10 Essential (primary) hypertension; R53.1 Weakness
CPT/HCPCS: 36415; 80069; 82044; 82306; 82310; 83970; 85025; 99214

== ENCOUNTER 2023-12-26 16:32 | Emergency (ER) | payer OTHER, MEDICAID, SELFPAY ==
[2023-12-26 16:41] VITALS: BP 119/59; PULSE 63; RESP 18; TEMP 36.8; O2SAT 94; BMI 29.2
--- NOTE | 2023-12-26 16:55 | ED_ITS ---
HPI - General Adult 2 General: Chief complaint: General Medical Stated complaint: LOW BLOOD PRESSURE Time Seen by Provider: 12/26/23 16:38 Source: patient and EMS Mode of arrival: EMS Limitations: no limitations History of Present Illness: Patient was transported by her home. Apparently the family took her blood pressure noted she had low blood pressure and called EMS. Patient does admit to having history of hypertension and takes blood pressure medication. She states she has had fluctuating blood pressures in the past and her family is very diligent about monitoring her blood pressure. She denies any recent illness and no current symptoms. Associated symptoms: Deny chest pain, dyspnea, headache(s), nausea, rash, palpitations, syncope or vomiting Review of Systems 2 Const: Denies: fever(s) or chills Eyes: Denies: change in vision ENMT: Denies: throat pain, odynophagia, nasal discharge or nasal congestion Card: Denies: chest pain, palpitations, irregular heart rhythm, lightheadedness, syncope or pre-syncope Resp: Denies: dyspnea, productive cough or non-productive cough GI: Denies: abdominal pain, nausea, vomiting or diarrhea : Denies: flank pain, difficulty voiding or dysuria Musc: Denies: neck pain, back pain, extremity pain or extremity swelling Skin/Breast: Denies: rash Neuro: Denies: headache(s), numbness in extremities, weakness in extremities, dizziness or vertigo Psych: Denies: anxiety or depression Endo: Denies: polyuria or polydipsia Bobby/Lymph: Denies: easy bruising or easy bleeding PFSH ED 2 PFSH: Medical History Diabetes mellitus CKD (chronic kidney disease) Hypercholesterolemia Asthma History of nonmelanoma skin cancer Peripheral arterial disease with history of revascularization HTN (hypertension) Family History Mother Myocardial infarction Father Myocardial infarction Stroke Social History Smoking and tobacco/nicotine status: never used tobacco/nicotine Physical Exam 2 Narrative: EXAM NARRATIVE: Patient is alert and makes good eye contact. Her answers to his are somewhat limited by her fund of knowledge. She appears to be comfortable. Const: COMMON NORMALS: no acute distress, average body habitus, patient oriented x3, healthy appearing and alert GENERAL APPEARANCE: cooperative HENMT: COMMON NORMALS: normocephalic, Normal nasal mucous membranes and turbinates present, moist oral mucous membranes and oropharynx normal HEAD & SCALP: normocephalic NOSE: Normal nasal mucous membranes and turbinates present Eye: COMMON NORMALS: Equal, round and reactive pupils present, EOMs intact bilaterally and conjunctivae normal CONJUNCTIVA: Yes conjunctivae normal P UPIL: Yes Equal, round and reactive pupils present Neck/C-Spine: COMMON NORMALS: full ROM, no lymphadenopathy, no JVD and No carotid bruits Chest: COMMONS NORMALS: normal inspection of the chest Resp: COMMON NORMALS: normal respiratory effort, No retractions, No use of accessory muscles and clear to auscultation bilaterally AUSCULTATION: clear to auscultation bilaterally Cardio: COMMON NORMALS: no JVD, regular rate, regular rhythm, No murmurs present (Cardio) and Peripheral pulses 2+ throughout RATE: regular rate R HYTHM: regular rhythm PERIPHERAL PULSES: Peripheral pulses 2+ throughout GI: COMMON NORMALS: Normal to inspection, nondistended, normoactive bowel sounds present, Soft to palpation and non-tender PALPATION: Yes Soft to palpation : COMMON NORMALS: Yes no CVA tenderness BLADDER/KIDNEY EXAM: Yes no CVA tenderness Back/Pelvis: COMMON NORMALS: no CVA tenderness, thoracic and lumbar spine normal to inspection, no thoracic nor lumbar tenderness and thoraco-lumbar ROM normal Extremity: COMMON NORMALS: normal to inspection, full ROM, capillary refill normal, no clubbing, cyanosis or edema, no calf tenderness and no pedal edema Neuro: COMMON NORMALS: patient oriented x3, moves all extremities, no focal motor deficits and no sensory deficits noted SENSORIUM/ORIENTATION: Yes alert Psych: COMMON NORMALS: mental status grossly normal Skin: COMMON NORMALS: no rashes or lesions noted and no wounds GENERAL SKIN EXAM: no rashes or lesions noted Course 2 Reevaluation(s): Reevaluation #1: Sister is now arrived and additional history was obtained from her. Apparently the patient's had some issues with fluctuating blood pressure and also has chronic kidney disease and therefore is on lisinopril to control both of those symptoms. Daughter reports today that they took her blood pressure this morning and it was in the 160/80 range which is exceeds the limit given to them previously and she gave her her usual lisinopril. Later on she the patient had an episode of diaphoresis and felt lightheaded and they took her blood pressure and it was in the 90/40 range with a pulse in the 50s and which persisted and therefore they called EMS. Given the patient reiterates no evidence of chest pain or other symptoms today other than what just been described. Time: 17:09 Reevaluation #2: Patient's blood pressures remained stable in the emergency department. She was noted to have a low magnesium and she was orally repleted with magnesium. Discussed the need for adequate fluid intake with both the patient and his sister. Sister relates that they have let her try to manage her own fluids recently and she has not been very jew about completing her water intake as they have directed. No indication for additional workup in the emergency department this time and I advised him to take the magnesium daily until they follow-up with her doctor and also discussed whether her antihypertensive needs to be adjusted. Certainly her lack of fluid intake as well as her Parkinson's disease also likely contributed to her pressures today. Stable at this time without any evidence of ongoing emergency medical condition Time: 18:22 Vital Signs: Vital signs: Vital Signs Temperature 98.3 F 12/26/23 16:41 Pulse Rate 63 12/26/23 16:41 Respiratory Rate 18 12/26/23 16:41 Blood Pressure 119/59 12/26/23 16:41 Pulse Oximetry 94 12/26/23 16:41 Oxygen Delivery Me thod Room Air 12/26/23 16:41 MDM - General Adult Medical Decision Making Patient with longstanding history of chronic kidney disease, Parkinson disease, hypertension who was transported to emergency department because if she had episodes of low blood pressure today. She had a longstanding history of fluctuating blood pressure and is been having adjustments made in her blood pressure medications off and on over the past months. There was no concomitant syncope chest pain etc. There is no falls or injury. On arrival to the emergency department the patient's blood pressure was in an acceptable normal range and once his sister arrived and provided illuminating history a workup was tailored to ensure no evidence of electrolyte disturbance, rhythm disturbance or anemia. Of note is that she has chronic kidney disease which is being managed by nephrology. Evidence of a some prerenal azotemia as well as hypomagnesemia was noted and she is her magnesium level was repleted orally and she was encouraged to take her magnesium on a daily basis. She remained stable without any evidence of an ongoing emergency medical condition and no need for further intervention at this time. We discussed current findings with both the patient and her accompanying family regarding the importance of oral fluid intake etc. and outpatient follow-up with return precautions Medical Records I reviewed the patient's medical records. Lab Data I reviewed the patient's lab results. 12/26/23 17:33 12/26/23 17:33 Laboratory Results WBC 10.02 10^3/uL (3.29-11.43) 12/26/23 17:33 RBC 4.97 10^6/uL (3.85-5.65) 12/26/23 17:33 Hgb 14.20 g/dL (11.27-16.99) 12/26/23 17:33 Hct 43.3 % (36-47) 12/26/23 17:33 MCV 87.1 fl (85-98) 12/26/23 17:33 MCH 28.6 pg (27-33) 12/26/23 17: MCHC 32.8 g/dL (30-55) 12/26/23 17:33 RDW 11.9 % (12.1-15.1) L 12/26/23 17:33 Plt Count 145 10^3/cmm (157-399) L 12/26/23 17:33 MPV 11.4 fL (7.4-10.4) H 12/26/23 17:33 Neut % (Auto) 85.1 % 12/26/23 17:33 Lymph % (Auto) 7.5 % 12/26/23 17:33 Meagher % (Auto) 6.9 % 12/26/23 17:33 Eos % (Auto) 0.1 % 12/26/23 17:33 Baso % (Auto) 0.1 % 12/26/23 17:33 Neut # (Auto) 8.53 10^3/uL (1.8-7.7) H 12/26/23 17:33 Lymph # (Auto) 0.8 10^3/uL (0.8-4.8) 12/26/23 17:33 Meagher # (Auto) 0.7 10^3/uL (0.2-0.9) 12/26/23 17:33 Eos # (Auto) 0.0 10^3/uL (0.0-0.8) 12/26/23 17:33 Baso # (Auto) 0.0 10^3/uL (0.0-0.1) 12/26/23 17:33 Nucleated RBC % (auto) 0 % 12/26/23 17:33 Nucleated RBCs # 0.0 /100WBC 12/26/23 17:33 Sodium 134 mmol/L (136-145) L 12/26/23 17:33 Potassium 3.8 mmol/L (3.5-5.1) 12/26/23 17:33 Chloride 93 mmol/L (98-107) L 12/26/23 17:33 Carbon Dioxide 30 mmol/L (22-29) H 12/26/23 17:33 Anion Gap 14.8 (5-19) 12/26/23 17:33 BUN 33 mg/dL (8-23) H 12/26/23 17:33 Creatinine 2.3 mg/dL (0.5-0.9) H 12/26/23 17:33 GFR Calculation Not Reportable 12/26/23 17:33 Glucose 163 mg/dL (65-115) H 12/26/23 17:33 Calculated Osmolality 289 mOsm/kg (285-295) 12/26/23 17:33 Calcium 10.0 mg/dL (8.5-10.5) 12/26/23 17:33 Magnesium 1.4 mg/dL (1.7-2.3) L 12/26/23 17:33 No radiology studies performed this visit EKG Data EKG 1: I personally reviewed and interpreted this EKG as follows: Interpretation: Contemporaneous review of resting EKG reveals a ventricular rate of 54 bpm consistent with sinus bradycardia. Normal DC interval, QRS duration, corrected QT interval. Normal axis. Nonspecific ST-T wave changes but otherwise no acute change at this time to suggest ischemia. Essentially unchanged from prior tracing in this facility. Discharge Plan Discharge Patient Disposition: Home Clinical Impression: Hypomagnesemia HTN (hypertension) Qualifiers: Hypertension type: essential hypertension Qualified Code(s): I10 - Essential (primary) hypertension Parkinson's disease Qualifiers: Dyskinesia presence: unspecified whether dyskinesia Fluctuating manifestations: unspecified whether manifestations fluctuate Qualified Code(s): G20.A1 - Parkinson's disease without dyskinesia, without mention of fluctuations Condition: Stable Prescriptions: No Action pravastatin 80 mg tablet 80 mg PO BEDTIME docusate sodium [Colace] 100 mg capsule 100 mg PO DAILY PRN (Reason: Constipation) magnesium oxide 400 mg magnesium capsule 400 mg PO EVERY OTHER DAY donepezil [Aricept] 5 mg tablet 5 mg PO BEDTIME naproxen [Naprosyn] 500 mg tablet 500 mg PO BID PRN (Reason: pain) Qty: 20 0RF carbidopa-levodopa 50-200 mg tablet extended release 1 tab PO TID lisinopril 5 mg tablet 5 mg PO DAILY Calcium + D 600 mg-5 mcg (200 unit) Tablet 1 tab PO BID torsemide 5 mg tablet 10 mg PO QAM ClearLax 17 gram Powder In Packet 17 g PO DAILY PRN (Reason: Constipation) Discharge Orders: Discharge ED (Routine); Ordered 12/26/23 Ordered By: Johnie Guerrier Referrals: Alber Wright FNP [Primary Care Provider] - Discharge Diet: Usual diet Discharge Activity: Resume usual activity Patient Instructions: Opioid Safety, Pain Management Activity Restrictions/Additional Instructions: Increase your magnesium intake to 1 pill 400 mg daily rather than every other day. Continue your other usual medications. Monitor your blood pressure carefully and discuss your medication dosing for your antihypertensives with your doctor. You should drink at least 1 and preferably 2 quarts of water daily. If you have any new or worsening symptoms you are welcome to return to the emergency department for reevaluation. Follow-up with your your doctor later this coming week. Coding Level of Care Code ED Proposition Player for Vanna Bolivar
[2023-12-26 17:42] LABS: Basophils % 0.1 %; Eosinophils % 0.1 %; Hematocrit 43.3 % (36-47); Lymphocytes # 0.8 10^3/uL (0.8-4.8); Lymphocytes % 7.5 %; Mean Corpuscular HGB Conc 32.8 g/dL (30-55); Mean Corpuscular Hemoglobin 28.6 pg (27-33); Mean Corpuscular Volume 87.1 fl (85-98); Mean Platelet Volume 11.4 fL (7.4-10.4); Monocytes # 0.7 10^3/uL (0.2-0.9); Monocytes % 6.9 %; Neutrophils # 8.53 10^3/uL (1.8-7.7); Neutrophils % 85.1 %; Nucleated Red Blood Cells % 0 %; Platelet Count 145 10^3/cmm (157-399); Red Blood Count 4.97 10^6/uL (3.85-5.65); Red Cell Distribution Width 11.9 % (12.1-15.1); White Blood Count 10.02 10^3/uL (3.29-11.43)
--- NOTE | 2023-12-26 17:55 | ECG_ITS ---
[facility] Test Date: 2023-12-26 Pat Name: Marian Hartman Department: Room: Gender: Female Health Worker: : 1950 Requested By: Johnie Guerrier Order Number: [id number] Valdez MD: Susan Jimenez M.D. Measurements Intervals [place] Rate: 54 P: 37 NC: 181 QRS: 46 QRSD: 103 T: 32 QT: 441 QTc: 421 Interpretive Statements SINUS BRADYCARDIA POSSIBLE RIGHT VENTRICULAR CONDUCTION DELAY [RSR (QR) IN V1/V2] NONSPECIFIC T-WAVE ABNORMALITY Compared to ECG 11/08/2023 14:47:30 T-wave abnormality now present Sinus rhythm no longer present Electronically Signed On 12-26-2023 22:40:42 CDT by Susan Jimenez M.D. [id number]
[2023-12-26 17:59] LABS: Anion Gap 14.8 (5-19); Blood Urea Nitrogen 33 mg/dL (8-23); Carbon Dioxide 30 mmol/L (22-29); Chloride 93 mmol/L (98-107); Glucose 163 mg/dL (65-115); Magnesium 1.4 mg/dL (1.7-2.3); Osmolality Calculated 289 mOsm/kg (285-295); Potassium 3.8 mmol/L (3.5-5.1); Sodium 134 mmol/L (136-145)
[2023-12-26 18:01] LABS: Creatinine Clr Calc Pharmacy 20.9277
[2023-12-26] MEDS: magnesium oxide 400 mg tablet 800 MG PO (18:32)
[2023-12-26 18:40] VITALS: BP 118/63; PULSE 72; RESP 16; TEMP 36.8; O2SAT 95
== END 2023-12-26 18:41 | disposition home or self-care (01) ==
PROVIDERS: Emergency Provider Emergency Medicine; PCP Nurse Practitioner Family
DX: E83.42 Hypomagnesemia (principal); G20.A1 Parkinson's disease without dyskinesia, without mention of fluctuations; E11.22 Type 2 diabetes mellitus with diabetic chronic kidney disease; I12.9 Hypertensive chronic kidney disease with stage 1 through stage 4 chronic kidney disease, or unspecified chronic kidney disease; N18.9 Chronic kidney disease, unspecified
CPT/HCPCS: 36415; 80048; 83735; 85025; 93005; 99284

== ENCOUNTER 2024-03-23 11:13 | Outpatient (CLI) | payer OTHER, MEDICAID, SELFPAY | END 2024-03-23 11:14 | disposition home or self-care (01) | LOC: LAB 04-07 07:52 | PROVIDERS: PCP Nurse Practitioner Family; Referring Provider Internal Medicine Nephrology; Visit Provider Internal Medicine Nephrology | DX: N18.4 Chronic kidney disease, stage 4 (severe) (principal) | CPT/HCPCS: 36415; 80069; 82306; 82310; 82570; 83970; 84156; 85025 ==

== ENCOUNTER → 2024-06-12 13:43 | Outpatient (BNVA) | payer OTHER, MEDICAID, SELFPAY | PROVIDERS: PCP Nurse Practitioner Family; Visit Provider Nurse Practitioner Family | DX: L57.0 Actinic keratosis (principal); D48.5 Neoplasm of uncertain behavior of skin; L57.8 Other skin changes due to chronic exposure to nonionizing radiation; L81.4 Other melanin hyperpigmentation; D22.5 Melanocytic nevi of trunk; L85.3 Xerosis cutis; Z85.828 Personal history of other malignant neoplasm of skin | CPT/HCPCS: 11102; 17004; 69100; 99213 ==

== ENCOUNTER → 2024-06-28 08:18 | Outpatient (BNVA) | payer OTHER, MEDICAID, SELFPAY | PROVIDERS: PCP Nurse Practitioner Family; Visit Provider Dermatology | DX: C44.319 Basal cell carcinoma of skin of other parts of face (principal); D48.5 Neoplasm of uncertain behavior of skin; D04.21 Carcinoma in situ of skin of right ear and external auricular canal; D04.5 Carcinoma in situ of skin of trunk; D04.72 Carcinoma in situ of skin of left lower limb, including hip | CPT/HCPCS: 11102; 13132; 17311; 99213 ==

== ENCOUNTER 2024-07-25 12:24 | Outpatient (CLI) | payer OTHER, MEDICAID, SELFPAY ==
[2024-07-25 13:41] LABS: Calcium 9.9 mg/dL (8.5-10.5)
[2024-07-25 13:42] LABS: Albumin Level 4.4 g/dL (3.5-5.2); Blood Urea Nitrogen 26 mg/dL (8-23); Calcium 10.2 mg/dL (8.5-10.5); Carbon Dioxide 31 mmol/L (22-29); Chloride 97 mmol/L (98-107); Glucose 86 mg/dL (65-115); Phosphorus 3.3 mg/dL (2.5-4.5); Sodium 138 mmol/L (136-145)
[2024-07-25 13:44] LABS: Creatinine Urine, Random 22 mg/dL (28-217); Microalbumin Random Urine 3 ug/dL (0-20)
[2024-07-25 13:45] LABS: Microalbum Creatinine Ratio Ur 136 mg/dL (0-20); Urine Creatinine 22 mg/dL (28-217); Urine Protein Random 8 mg/dL
[2024-07-25 13:46] LABS: UPRO/UCREAT Ratio 0.36 mg/mg CR
[2024-07-25 13:48] LABS: Parathyroid Hormone 39.9 pg/mL (15-65)
[2024-07-25 13:58] LABS: 25 Hydroxy Vitamin D 37 ng/mL (30-100)
== END 2024-07-25 12:25 | disposition home or self-care (01) ==
LOC: LAB 12:27
PROVIDERS: PCP Nurse Practitioner Family; Visit Provider Registered Nurse
DX: N18.4 Chronic kidney disease, stage 4 (severe) (principal)
CPT/HCPCS: 36415; 80069; 82044; 82306; 82310; 82570; 83970; 84156

== ENCOUNTER → 2024-09-07 08:03 | Outpatient (BNVA) | payer OTHER, MEDICAID, SELFPAY | PROVIDERS: PCP Nurse Practitioner Family; Visit Provider Dermatology | DX: C44.329 Squamous cell carcinoma of skin of other parts of face (principal); L57.0 Actinic keratosis | CPT/HCPCS: 13132; 14041; 17000; 17311 ==

== ENCOUNTER 2024-11-21 10:42 | Outpatient (CLI) | payer OTHER, MEDICAID, SELFPAY ==
[2024-11-21 11:34] LABS: Basophils % 0.4 %; Eosinophils # 0.2 10^3/uL (0.0-0.8); Eosinophils % 2.5 %; Hematocrit 40.9 % (36-47); Lymphocytes # 0.5 10^3/uL (0.8-4.8); Lymphocytes % 7.3 %; Mean Corpuscular HGB Conc 32.8 g/dL (30-55); Mean Corpuscular Hemoglobin 28.1 pg (27-33); Mean Corpuscular Volume 85.7 fl (85-98); Mean Platelet Volume 10.5 fL (7.4-10.4); Monocytes # 0.5 10^3/uL (0.2-0.9); Monocytes % 6.3 %; Neutrophils # 5.94 10^3/uL (1.8-7.7); Neutrophils % 83.4 %; Nucleated Red Blood Cells % 0 %; Platelet Count 211 10^3/cmm (157-399); Red Blood Count 4.77 10^6/uL (3.85-5.65); Red Cell Distribution Width 11.5 % (12.1-15.1); White Blood Count 7.13 10^3/uL (3.29-11.43)
[2024-11-21 11:57] LABS: Calcium 9.1 mg/dL (8.5-10.5)
[2024-11-21 11:59] LABS: Albumin Level 3.9 g/dL (3.5-5.2); Anion Gap 16.2 (5-19); Blood Urea Nitrogen 25 mg/dL (8-23); Calcium 9.2 mg/dL (8.5-10.5); Carbon Dioxide 26 mmol/L (22-29); Chloride 101 mmol/L (98-107); Glucose 158 mg/dL (65-115); Phosphorus 2.9 mg/dL (2.5-4.5); Potassium 4.2 mmol/L (3.5-5.1); Sodium 139 mmol/L (136-145)
[2024-11-21 12:02] LABS: Parathyroid Hormone 73.2 pg/mL (15-65)
[2024-11-21 12:05] LABS: Creatinine Urine, Random 147 mg/dL (28-217); Microalbum Creatinine Ratio Ur 20 mg/dL (0-20); Microalbumin Random Urine 3 ug/dL (0-20)
[2024-11-21 12:12] LABS: 25 Hydroxy Vitamin D 39 ng/mL (30-100)
== END 2024-11-21 10:43 | disposition home or self-care (01) ==
PROVIDERS: PCP Nurse Practitioner Family; Visit Provider Registered Nurse
DX: N18.4 Chronic kidney disease, stage 4 (severe) (principal); E55.9 Vitamin D deficiency, unspecified
CPT/HCPCS: 36415; 80069; 82044; 82306; 82310; 83970; 85025

== ENCOUNTER → 2024-12-06 14:37 | Outpatient (BNVA) | payer OTHER, MEDICAID, SELFPAY | PROVIDERS: PCP Nurse Practitioner Family; Visit Provider Nurse Practitioner Family | DX: Z08 Encounter for follow-up examination after completed treatment for malignant neoplasm (principal); Z85.828 Personal history of other malignant neoplasm of skin; D48.5 Neoplasm of uncertain behavior of skin; D04.21 Carcinoma in situ of skin of right ear and external auricular canal; L57.0 Actinic keratosis | CPT/HCPCS: 17000; 17262; 17280; 99213 ==

== ENCOUNTER 2025-01-04 12:59 | Emergency (ER) | payer OTHER, MEDICAID, SELFPAY ==
[2025-01-04 13:06] VITALS: BP 118/65; PULSE 91; RESP 17; TEMP 36.6; O2SAT 93; BMI 24.7
--- NOTE | 2025-01-04 13:13 | ECG_ITS ---
[facility] Test Date: 2025-01-04 Pat Name: Marian Hartman Department: Room: Gender: Female Hand Wood Sander: : 1950 Requested By: Jan Baxter Order Number: [id number] José Miguel MD: Susan Jimenez M.D. Measurements Intervals [place] Rate: 89 P: 52 MD: 177 QRS: 71 QRSD: 124 T: -2 QT: 361 QTc: 442 Interpretive Statements SINUS RHYTHM POSSIBLE RIGHT VENTRICULAR CONDUCTION DELAY [RSR (QR) IN V1/V2] ST DEVIATION AND MODERATE T-WAVE ABNORMALITY, CONSIDER ANTERIOR ISCHEMIA [-0.1+ mV T-WAVE IN V3/V4] Compared to ECG 12/26/2023 17:55:37 Possible ischemia now present Sinus bradycardia no longer present T-wave abnormality still present Electronically Signed On 01-04-2025 18:02:29 CDT by Susan Jimenez M.D. [id number]
--- NOTE | 2025-01-04 13:46 | XR_ITS ---
WS: [id number] Portable AP upright chest, 01/04/2025 Clinical Data: CP Comparison: Portable chest, 11/08/2023 Findings: No nodules, masses or effusions are seen. The heart is enlarged. The pulmonary vascularity is not increased. No pneumonia or pneumothorax is seen. The ribs show abnormal sloping unchanged. The aortic arch and descending thoracic aorta show calcification and tortuosity. There is a small recording device overlying the left upper quadrant. XR/XR chest 1V portable [id number] Impression: Cardiomegaly and atherosclerosis.
--- NOTE | 2025-01-04 14:28 | W.ED.BACK ---
HPI - Back Pain/Injury General: Chief Complaint: Back Pain/Injury Stated Complaint: left side rib/back area pain Time Seen by Provider: 01/04/25 13:29 Source: family Mode of arrival: ambulatory History of Present Illness: 74yo female with a history of Parkinson's, chronic kidney disease, and dementia presents with her guardians for evaluation of left-sided rib/back pain that has been ongoing for the past 2 days. Family reports the patient has a Watchman recorder implanted. Patient indicates that she does have increased pain with breathing. She denies fall, trauma, known injury, chest pain, shortness of breath, rash, any other concerns at this time. Guardian does report that Wednesday (3 days ago) the patient's right eye would not move appropriately. Patient denies any vision changes, pain in the eye, or difficulty moving the eye. Associated symptoms: Deny abdominal pain, chills, difficulty walking, fever(s), nausea or vomiting Related Data Home Medications ?Medication ?Instructions ?Recorded ?Confirmed docusate sodium 100 mg capsule 100 mg PO DAILY PRN Constipation 12/23/20 11/10/23 (Colace) magnesium oxide 400 mg PO EVERY OTHER DAY 12/23/20 11/10/23 pravastatin 80 mg tablet 80 mg PO BEDTIME 12/23/20 11/10/23 donepezil 5 mg tablet (Aricept) 5 mg PO BEDTIME 01/26/23 11/10/23 carbidopa ER 50 mg-levodopa 200 mg 1 tab PO TID 10/15/23 11/10/23 tablet,extended release lisinopril 5 mg tablet 5 mg PO DAILY 10/15/23 11/10/23 calcium 600 mg (as 1 tab PO BID 11/08/23 11/10/23 carbonate)-vitamin D3 5 mcg (200 unit) tablet polyethylene glycol 3350 17 gram 17 g PO DAILY PRN Constipation 11/08/23 11/10/23 oral powder packet (ClearLax) torsemide 5 mg tablet 10 mg PO QAM 11/08/23 11/10/23 Previous Rx's ?Medication ?Instructions ?Recorded naproxen 500 mg tablet (Naprosyn) 500 mg PO BID PRN pain #20 tabs 06/01/23 tizanidine 2 mg tablet 2 mg PO Q8H PRN muscle spasticity 05/22/25 #20 tabs Allergies Allergy/AdvReac Type Severity Reaction Status Date / Time No Known Allergies Allergy Verified 11/10/23 09:49 Review of Systems Const: Denies: fever(s), chills or body aches Eyes: Denies: change in vision, blurry vision, photophobia, eye discomfort, eye discharge or eye redness ENMT: Denies: throat pain Card: Denies: chest pain or palpitations Resp: Reports: pain on inspiration; Denies: dyspnea or stridor GI: Denies: abdominal pain, nausea or vomiting Musc: Reports: other (Pain left mid back and left lateral rib area) Skin/Breast: Denies: rash or pruritus Neuro: Denies: headache(s), weakness in extremities or difficulty walking PFSH ED PFSH: Medical History Diabetes mellitus CKD (chronic kidney disease) Hypercholesterolemia Asthma History of nonmelanoma skin cancer Peripheral arterial disease with history of revascularization HTN (hypertension) Family History Mother Myocardial infarction Father Myocardial infarction Stroke Social History Smoking and tobacco/nicotine status: never used tobacco/nicotine Physical Exam Const: COMMON NORMALS: no acute distress, healthy appearing and alert GENERAL APPEARANCE: cooperative ORIENTATION/CONSCIOUSNESS: Yes awake OTHER: Patient is sitting upright in a vertical flow recliner in no acute distress. She is able to answer questions and follow directions with no difficulty. She is interactive with exam appropriately. History is provided by guardians at bedside HENMT: COMMON NORMALS: normocephalic and atraumatic HEAD & SCALP: normocephalic and atraumatic FACE & SINUS: no abrasion and no ecchymosis Eye: COMMON NORMALS: Equal, round and reactive pupils present, EOMs intact bilaterally and conjunctivae normal CONJUNCTIVA: Yes conjunctivae normal PUPIL: Yes Equal, round and reactive pupils present Chest: COMMONS NORMALS: normal inspection of the chest CHEST: Yes Symmetrical chest wall rise OTHER: Tenderness with palpation of left lateral rib area Resp: COMMON NORMALS: normal respiratory effort, No use of accessory muscles and clear to auscultation bilaterally AUSCULTATION: clear to auscultation bilaterally : COMMON NORMALS: Yes no CVA tenderness BLADDER/KIDNEY EXAM: Yes no CVA tenderness Back/Pelvis: COMMON NORMALS: no CVA tenderness GENERAL BACK: Yes tenderness (left mid back. No rash, ecchymosis, abrasions, crepitus noted) Extremity: COMMON NORMALS: full ROM Neuro: COMMON NORMALS: moves all extremities, no focal motor deficits and no sensory deficits noted SENSORIUM/ORIENTATION: Yes alert COORDINATION/BALANCE: Romberg test negative Psych: COMMON NORMALS: cooperative Course Vital Signs: Vital signs: Vital Signs Temperature 97.8 F 01/04/25 13:06 Pulse Rate 89 01/04/25 18:12 Respiratory Rate 16 01/04/25 18:12 Blood Pressure 111/75 01/04/25 18:12 Pulse Oximetry 95 01/04/25 18:12 Oxygen Delivery Me thod Room Air 01/04/25 13:06 MDM - Back Pain/Injury Medical Decision Making 74yo female with a history of Parkinson's, chronic kidney disease, and dementia presents with her guardians for evaluation of left-sided rib/back pain that has been ongoing for the past 2 days. Family reports the patient has a Watchman recorder implanted. Patient indicates that she does have increased pain with breathing. She denies fall, trauma, known injury, chest pain, shortness of breath, rash, any other concerns at this time. Patient is nontoxic in appearance. Vitals signs stable. Differential diagnoses include but are not limited to: TN, pneumonia, AAA, shingles, muscular pain, fracture, radiculopathy Mild leukocytosis with white blood cell count of 12.52. No indication of anemia, red blood cells 5.41. Platelets are mildly decreased at 152. No significant electrolyte abnormalities noted. BUN is slightly elevated at 29. Creatinine is stable at 1.5. Baseline troponin is 16 with a 2-hour troponin of 17.27. Chest x-ray does show cardiomegaly and atherosclerosis. Patient did receive hydrocodone while in the emergency department. She had no worsening symptoms during her ER stay. Advised patient and family there is no indication of cardiac or pulmonary etiology of her left back and left rib discomfort. Prescription of tizanidine was sent to patient's pharmacy. Recommend she follow-up with primary care, call Wednesday with an update of symptoms and to discuss a recheck. Return precautions provided. Patient and family state understanding and have no further questions or concerns at this time. Medical Records I reviewed the patient's medical records. Labs I reviewed the patient's lab results. 01/04/25 14:55 01/04/25 14:55 Radiology Impressions Chest X-Ray 01/04/25 13:46 Impression: Cardiomegaly and atherosclerosis. Laboratory Results WBC 12.52 10^3/uL (3.29-11.43) H 01/04/25 14:55 RBC 5.41 10^6/uL (3.85-5.65) 01/04/25 14:55 Hgb 15.50 g/dL (11.27-16.99) 01/04/25 14:55 Hct 47.5 % (36-47) H 01/04/25 14:55 MCV 87.8 fl (85-98) 01/04/25 14:55 MCH 28.7 pg (27-33) 01/04/25 14:55 MCHC 32.6 g/dL (30-55) 01/04/25 14:55 RDW 12.5 % (12.1-15.1) 01/04/25 14:55 Plt Count 152 10^3/cmm (157-399) L 01/04/25 14:55 MPV 11.4 fL (7.4-10.4) H 01/04/25 14:55 Neut % (Auto) 89.6 % 01/04/25 14:55 Lymph % (Auto) 3.6 % 01/04/25 14:55 Wilkin % (Auto) 6.3 % 01/04/25 14:55 Eos % (Auto) 0.0 % 01/04/25 14:55 Baso % (Auto) 0.2 % 01/04/25 14:55 Neut # (Auto) 11.22 10^3/uL (1.8-7.7) H 01/04/25 14:55 Lymph # (Auto) 0.5 10^3/uL (0.8-4.8) L 01/04/25 14:55 Wilkin # (Auto) 0.8 10^3/uL (0.2-0.9) 01/04/25 14:55 Eos # (Auto) 0.0 10^3/uL (0.0-0.8) 01/04/25 14:55 Baso # (Auto) 0.0 10^3/uL (0.0-0.1) 01/04/25 14:55 Nucleated RBC % (auto) 0 % 01/04/25 14:55 Nucleated RBCs # 0.0 /100WBC 01/04/25 14:55 Sodium 138 mmol/L (136-145) 01/04/25 14:55 Potassium 4.1 mmol/L (3.5-5.1) 01/04/25 14:55 Chloride 98 mmol/L (98-107) 01/04/25 14:55 Carbon Dioxide 19 mmol/L (22-29) L 01/04/25 14:55 Anion Gap 25.1 (5-19) H 01/04/25 14:55 BUN 29 mg/dL (8-23) H 01/04/25 14:55 Creatinine 1.5 mg/dL (0.5-0.9) H 01/04/25 14:55 GFR Calculation Not Reportable 01/04/25 14:55 Glucose 119 mg/dL (65-115) H 01/04/25 14:55 Calculated Osmolality 293 mOsm/kg (285-295) 01/04/25 14:55 Calcium 9.5 mg/dL (8.5-10.5) 01/04/25 14:55 Magnesium 2.2 mg/dL (1.7-2.3) 01/04/25 14:55 Total Bilirubin 0.8 mg/dL (0.15-1.2) 01/04/25 14:55 AST 12 U/L (0-32) 01/04/25 14:55 ALT < 5 U/L (0-33) 01/04/25 14:55 Alkaline Phosphatase 88 U/L (35-105) 01/04/25 14:55 Troponin T Baseline 16 ng/L (0-10) H 01/04/25 14:55 Troponin T 120 Minute 17.27 ng/L (0-10) H 01/04/25 18:02 Delta Troponin T 1.27 ABS# (0-10) 01/04/25 18:02 Total Protein 7.5 g/dL (6.6-8.7) 01/04/25 14:55 Albumin 4.6 g/dL (3.5-5.2) 01/04/25 14:55 Globulin 2.9 g/dL (1.3-4.6) 01/04/25 14:55 All radiology interpretation(s) finalized by discharge Discharge Plan Discharge Patient Disposition: Home Clinical Impression: Acute left-sided thoracic back pain, Rib pain on left side Condition: Stable Prescriptions: New tizanidine 2 mg tablet 2 mg PO Q8H PRN (Reason: muscle spasticity) Qty: 20 0RF No Action pravastatin 80 mg tablet 80 mg PO BEDTIME docusate sodium [Colace] 100 mg capsule 100 mg PO DAILY PRN (Reason: Constipation) magnesium oxide 400 mg magnesium capsule 400 mg PO EVERY OTHER DAY donepezil [Aricept] 5 mg tablet 5 mg PO BEDTIME naproxen [Naprosyn] 500 mg tablet 500 mg PO BID PRN (Reason: pain) Qty: 20 0RF carbidopa-levodopa 50-200 mg tablet extended release 1 tab PO TID lisinopril 5 mg tablet 5 mg PO DAILY Calcium + D 600 mg-5 mcg (200 unit) Tablet 1 tab PO BID torsemide 5 mg tablet 10 mg PO QAM ClearLax 17 gram Powder In Packet 17 g PO DAILY PRN (Reason: Constipation) Discharge Orders: Discharge ED (Routine); Ordered 01/04/25 Ordered By: Flaco Magaña Referrals: Alber Wright FNP [Primary Care Provider] Discharge Diet: Usual diet Discharge Activity: Increase activity as tolerated Patient Instructions: Lower Back Exercises (ED), Pain Management Activity Restrictions/Additional Instructions: No indication of heart or lung etiology of the left-sided back and rib pain A short course of tizanidine has been sent to your pharmacy to help with the pain and for comfort Follow-up with primary care, call Wednesday with an update of symptoms and to discuss a recheck Return to the emergency department if any rapid worsening symptoms and as needed Print Language: Vietnamese Coding Level of Care Code ED [employer] As[employer]er for Vanna Bolivar
[2025-01-04 15:09] LABS: Basophils % 0.2 %; Hematocrit 47.5 % (36-47); Lymphocytes # 0.5 10^3/uL (0.8-4.8); Lymphocytes % 3.6 %; Mean Corpuscular HGB Conc 32.6 g/dL (30-55); Mean Corpuscular Hemoglobin 28.7 pg (27-33); Mean Corpuscular Volume 87.8 fl (85-98); Mean Platelet Volume 11.4 fL (7.4-10.4); Monocytes # 0.8 10^3/uL (0.2-0.9); Monocytes % 6.3 %; Neutrophils # 11.22 10^3/uL (1.8-7.7); Neutrophils % 89.6 %; Nucleated Red Blood Cells % 0 %; Platelet Count 152 10^3/cmm (157-399); Red Blood Count 5.41 10^6/uL (3.85-5.65); Red Cell Distribution Width 12.5 % (12.1-15.1); White Blood Count 12.52 10^3/uL (3.29-11.43)
[2025-01-04 15:30] LABS: Troponin(5th) Baseline 16 ng/L (0-10)
[2025-01-04 15:31] LABS: Alanine Aminotransferase < 5 U/L (0-33); Albumin Level 4.6 g/dL (3.5-5.2); Alkaline Phosphatase 88 U/L (35-105); Blood Urea Nitrogen 29 mg/dL (8-23); Calcium 9.5 mg/dL (8.5-10.5); Carbon Dioxide 19 mmol/L (22-29); Chloride 98 mmol/L (98-107); Creatinine Clr Calc Pharmacy 29.1965; Globulin 2.9 g/dL (1.3-4.6); Glucose 119 mg/dL (65-115); Magnesium 2.2 mg/dL (1.7-2.3); Osmolality Calculated 293 mOsm/kg (285-295); Sodium 138 mmol/L (136-145); Total Bilirubin 0.8 mg/dL (0.15-1.2); Total Protein 7.5 g/dL (6.6-8.7)
[2025-01-04 15:38] LABS: Anion Gap 25.1 (5-19); Aspartate Amino Transferase 12 U/L (0-32); Potassium 4.1 mmol/L (3.5-5.1)
--- NOTE | 2025-01-04 15:56 | ECG_ITS ---
[facility] Date: 2025-01-04 Pat Name: Marian Hartman Department: Room: Gender: Female Oil Drilling Engineer: : 1950 Requested By: Flaco Magaña Order Number: [id number] Valdez MD: Susan Jimenez M.D. Measurements Intervals [place] Rate: 89 P: 57 MT: 183 QRS: 74 QRSD: 126 T: 3 QT: 363 QTc: 442 Interpretive Statements SINUS RHYTHM POSSIBLE RIGHT VENTRICULAR CONDUCTION DELAY [RSR (QR) IN V1/V2] NONSPECIFIC ST & T-WAVE ABNORMALITY Compared to ECG 01/04/2025 13:13:57 Possible ischemia no longer present T-wave abnormality still present Electronically Signed On 01-04-2025 18:15:22 CDT by Susan Jimenez M.D. [email or web address]
[2025-01-04] MEDS: HYDROcodone-acetaminophen 5-325 mg Tablet 1 TAB PO (16:19)
[2025-01-04] MEDS: ondansetron hcl ODT 4 mg Tab PO (16:20)
[2025-01-04 18:12] VITALS: BP 111/75; PULSE 89; RESP 16; O2SAT 95
[2025-01-04 18:34] LABS: Troponin 5 2HR 17.27 ng/L (0-10); Troponin 5 2HR Delta 1.27 ABS# (0-10)
[2025-01-04 19:09] VITALS: BP 116/73; PULSE 80; RESP 16; O2SAT 95
== END 2025-01-04 19:10 | disposition home or self-care (01) ==
PROVIDERS: Emergency Provider Nurse Practitioner; PCP Nurse Practitioner Family
DX: R07.81 Pleurodynia (principal); M54.6 Pain in thoracic spine; N18.9 Chronic kidney disease, unspecified; G20.A1 Parkinson's disease without dyskinesia, without mention of fluctuations; I12.9 Hypertensive chronic kidney disease with stage 1 through stage 4 chronic kidney disease, or unspecified chronic kidney disease; E11.22 Type 2 diabetes mellitus with diabetic chronic kidney disease; F02.80 Dementia in other diseases classified elsewhere, unspecified severity, without behavioral disturbance, psychotic disturbance, mood disturbance, and anxiety; Z79.899 Other long term (current) drug therapy
CPT/HCPCS: 36415; 71045; 80053; 83735; 84484; 85025; 93005; 99285; J9999; Q0162

== ENCOUNTER 2025-01-23 08:25 | Outpatient (CLI) | payer OTHER, SELFPAY ==
[2025-01-23 09:55] LABS: Estmated Average Glucose 126
== END 2025-01-23 08:26 | disposition home or self-care (01) ==
PROVIDERS: PCP Nurse Practitioner Family; Visit Provider Family Medicine
DX: E11.22 Type 2 diabetes mellitus with diabetic chronic kidney disease (principal); N18.4 Chronic kidney disease, stage 4 (severe)
CPT/HCPCS: 36415; 83036

== ENCOUNTER → 2025-03-06 12:45 | Outpatient (BNVA) | payer OTHER, SELFPAY | PROVIDERS: PCP Nurse Practitioner Family; Visit Provider Nurse Practitioner Family | DX: S00.83XA Contusion of other part of head, initial encounter (principal); X58.XXXA Exposure to other specified factors, initial encounter; D48.5 Neoplasm of uncertain behavior of skin; Z08 Encounter for follow-up examination after completed treatment for malignant neoplasm; Z85.828 Personal history of other malignant neoplasm of skin; L57.0 Actinic keratosis | CPT/HCPCS: 11102; 17000; 69100; 99213 ==

== ENCOUNTER 2025-03-29 11:07 | Outpatient (CLI) | payer MEDICARE, MEDICAID, SELFPAY ==
[2025-03-29 12:14] LABS: Hematocrit 39.3 % (36-47); Hemoglobin 12.40 g/dL (11.27-16.99); Mean Corpuscular HGB Conc 31.6 g/dL (30-55); Mean Corpuscular Hemoglobin 27.3 pg (27-33); Mean Corpuscular Volume 86.4 fl (85-98); Nucleated Red Blood Cells % 0 %; Platelet Count 155 10^3/cmm (157-399); Red Blood Count 4.55 10^6/uL (3.85-5.65); White Blood Count 6.64 10^3/uL (3.29-11.43)
[2025-03-29 12:30] LABS: Albumin Level 4.1 g/dL (3.5-5.2); Anion Gap 15.3 (5-19); Blood Urea Nitrogen 23 mg/dL (8-23); Calcium 9.1 mg/dL (8.5-10.5); Carbon Dioxide 29 mmol/L (22-29); Chloride 100 mmol/L (98-107); Glucose 95 mg/dL (65-115); Potassium 4.3 mmol/L (3.5-5.1); Sodium 140 mmol/L (136-145)
[2025-03-29 12:33] LABS: UPRO/UCREAT Ratio 0.13 mg/mg CR
[2025-03-29 12:47] LABS: Calcium 9.0 mg/dL (8.5-10.5)
== END 2025-03-29 11:08 | disposition home or self-care (01) ==
PROVIDERS: PCP Internal Medicine; Visit Provider Registered Nurse
DX: N18.4 Chronic kidney disease, stage 4 (severe) (principal)
CPT/HCPCS: 36415; 80069; 82310; 82570; 83970; 84156; 85025

== ENCOUNTER → 2025-04-04 09:34 | Outpatient (BNVA) | payer MEDICARE, MEDICAID, SELFPAY | PROVIDERS: PCP Internal Medicine; Visit Provider Dermatology | DX: Z08 Encounter for follow-up examination after completed treatment for malignant neoplasm (principal); Z85.828 Personal history of other malignant neoplasm of skin; C44.712 Basal cell carcinoma of skin of right lower limb, including hip; D04.21 Carcinoma in situ of skin of right ear and external auricular canal | CPT/HCPCS: 17262; 17280; 99213 ==

== ENCOUNTER → 2025-05-18 08:54 | Outpatient (BNVA) | payer MEDICARE, MEDICAID, SELFPAY | PROVIDERS: PCP Internal Medicine; Visit Provider Nurse Practitioner Family | DX: C44.91 Basal cell carcinoma of skin, unspecified (principal); D04.9 Carcinoma in situ of skin, unspecified; Z08 Encounter for follow-up examination after completed treatment for malignant neoplasm; Z85.828 Personal history of other malignant neoplasm of skin | CPT/HCPCS: 17000; 99213 ==